=== PATIENT | female | born 1940 | race Caucasian/White ===

== ENCOUNTER → 2023-12-27 10:05 | Outpatient (REF) | payer MEDICARE, OTHER, SELFPAY | LOC: DHVS 10:05 | PROVIDERS: ATTENDING PHYSICIAN Surgery Vascular Surgery; FAMILY PHYSICIAN Family Medicine; REFERRING PHYSICIAN Internal Medicine Cardiovascular Disease | DX: I73.9 Peripheral vascular disease, unspecified (principal); I65.29 Occlusion and stenosis of unspecified carotid artery; I65.23 Occlusion and stenosis of bilateral carotid arteries | CPT/HCPCS: 93880; 93922; 93925 ==

== ENCOUNTER 2024-09-06 12:35 | Inpatient (IN) | payer MEDICARE, OTHER, SELFPAY ==
[2024-09-06] VITALS (15 sets, daily range): BP systolic 152–191; BP diastolic 61–84; PULSE 2–97; BMI 22.3
--- NOTE | 2024-09-06 09:54 | ED.GENMED ---
History of Present Illness
<Summer Roberts PA-C - Last Filed: 09/06/24 15:11>
General
Chief Complaint: Breathing Problem
Source: patient
Exam Limitations: none
Time Seen by Provider: 09/06/24 09:44
History of Present Illness
History of Present Illness:
83yoF with a history of coronary artery disease s/p CABG and PCI, atrial fibrillation, pacemaker, peripheral vascular disease, COPD on 2L NC, hypertension, hyperlipidemia presenting via EMS for evaluation of shortness of breath. Patient has been
feeling unwell for the past 4 days. She reports intermittent cough, shortness of breath, and nausea. Patient felt very unwell upon wakening today and called EMS. EMS reported crackles on her lung exam. She admits having chest heaviness but
states this has been ongoing for a long time and may be related to anxiety. She saw her slat basket maker helper machine last week and her lungs were clear at that time. She denies any fevers. Patient was last admitted in [facility] in May of this year
for CHF exacerbation.
Phy Exam
<Summer Roberts PA-C - Last Filed: 09/06/24 15:11>
Physical Exam
Physical Exam:
Chronically ill appearing, no acute distress
General Physical Exam
General Presentation: no apparent distress
General Skin: warm and dry
General Habitus: elderly
General Mental: alert
ENT Exam
ENT Exam: normocephalic
Cardiovascular Exam
Cardiovascular Exam: regular rate/rhythm and other (1+ pitting edema near ankles bilaterally)
Pulmonary Exam
Pulmonary Exam: other (Mildly tachypneic. Bibasilar rales noted.)
Neurological Exam
Neurological Exam: alert
Bernabe Coma Scale
Eye Opening: Spontaneous
Verbal Response: Oriented
Motor Response: Obeys Commands
GCS Total Score: 15
Skin Exam
Skin Exam: normal color and warm/dry
Psychiatric Exam
Psychiatric Exam: normal mood/affect
Scores
<Summer Roberts PA-C - Last Filed: 09/06/24 15:11>
Heart Failure Risk
Heart Failure Risk Score: Not Applicable
Course
<Summer Roberts PA-C - Last Filed: 09/06/24 15:11>
Orders/Labs/Results
Orders:
Orders
09/06/24
Electrocardiogram (*1) Stat
Other Reason for Exam: CP
Comment: DONE
09/06/24 09:53
Cardiac Monitoring- Treatment ONCE
Interrogate Pacemaker- Treatment ONCE
CR Chest - 2 Views Urgent
Comment:
Reason For Exam: SOB
09/06/24 09:57
COVID-19 Antigen Urgent
Source: Nasal Swab
Complete Blood Count/With Diff Urgent
Venous Blood Gas Urgent
%Oxygen/Room Air: 2L NC
Influenza A+B Rapid Molecular Urgent
EMILY Source: Nasal Swab
Specimen Description:
09/06/24 10:21
Comprehensive Metabolic Panel Urgent
NT-proBNP Urgent
Troponin I Urgent
09/06/24 11:29
Furosemide [Lasix] 40 mg IV NOW STA
09/06/24 12:14
Admit/Transfer Patient As Directed
Co-Sign Provider:
Level of Care: Inpatient admission
Assign to:: IMU- Intermediate Care
Physician / Group: [email or web address]
Diagnosis: CHf exacerbation
Reason for Hospitalization: CHF exacerbation
Expected length of stay greater than two midnights?: Yes
ELOS- Estimated Length of Stay in days: 3
I certify the patient meets the requirements for IP care: Yes
PRN Pain Medication Management As Directed
May give lesser potent ordered pain med per pt: Yes
preference::
Protocol:: Medication orders for pain may be administered in a
manner that supports deferring to patient preference
when the pt is:
- Requesting an ordered lesser potent pain medication.
Least to most potent pain medications are defined
as: acetaminophen < NSAID < tramadol < opioids
(morphine, oxycodone, hydromorphone).
- Requesting a lesser dose of the same medication IF
ORDERED.
- Requesting a less intrusive route of administration
if both routes are prescribed by the provider (PO <
IV).
09/06/24 12:15
Code Status As Directed
Resuscitation Status: Full Code
09/06/24 12:19
Waste Duster Consult Routine
Consulting Provider: Lashell Solis
Was physician already notified: Yes
09/06/24 15:30
ABG [Arterial Blood Gas] Urgent
%Oxygen/Room Air: 2l
Abnormal Lab Results
09/06/24 09/06/24
09:57 10:21
MCHC 31.4 L g/dL
(33.0-37.0)
RDW 15.3 H %
(11.5-14.5)
MPV 11.4 H fL
(7.4-10.4)
Absolute Lymphs (auto) 1.1 L 10^3/uL
(1.2-3.4)
Absolute Monos (auto) 0.7 H 10^3/uL
(0.1-0.6)
Neutrophils % 76.2 H %
(42.2-75.2)
Lymphocytes % 12.3 L %
(20.5-51.1)
VBG pCO2 81 H* mmHg
(35-48)
VBG pO2 52 H mmHg
(30-50)
VBG HCO3 43.7 H mmol/L
(22-27)
Chloride 92 L mmol/L
(98-107)
Carbon Dioxide 40 H mmol/L
(22-30)
BUN 47 H mg/dl
(7-17)
Creatinine 1.3 H mg/dL
(0.6-1.0)
Glucose 159 H mg/dl
(70-99)
09/06/24 09:57
09/06/24 10:21
Vital Signs
Initial and Last Documented VS:
Initial Vital Signs
Temp Pulse Resp BP Pulse Ox
97.6 F 70 24 179/72 97
09/06/24 09:43 09/06/24 09:43 09/06/24 09:43 09/06/24 09:43 09/06/24 09:43
Last Documented Vital Signs
Temp Pulse Resp BP Pulse Ox
97.6 F 71 29 164/71 96
09/06/24 09:43 09/06/24 11:51 09/06/24 10:00 09/06/24 11:51 09/06/24 10:00
<Reagan Alvarez, DO - Last Filed: 09/06/24 12:26>
Orders/Labs/Results
Orders:
Orders
09/06/24
Electrocardiogram (*1) Stat
Other Reason for Exam: CP
Comment: DONE
09/06/24 09:53
Cardiac Monitoring- Treatment ONCE
Interrogate Pacemaker- Treatment ONCE
CR Chest - 2 Views Urgent
Comment:
Reason For Exam: SOB
09/06/24 09:57
COVID-19 Antigen Urgent
Source: Nasal Swab
Complete Blood Count/With Diff Urgent
Venous Blood Gas Urgent
%Oxygen/Room Air: 2L NC
Influenza A+B Rapid Molecular Urgent
EMILY Source: Nasal Swab
Specimen Description:
09/06/24 10:21
Comprehensive Metabolic Panel Urgent
NT-proBNP Urgent
Troponin I Urgent
09/06/24 11:29
Furosemide [Lasix] 40 mg IV NOW STA
09/06/24 12:14
Admit/Transfer Patient As Directed
Co-Sign Provider:
Level of Care: Inpatient admission
Assign to:: IMU- Intermediate Care
Physician / Group: [email or web address]
Diagnosis: CHf exacerbation
Reason for Hospitalization: CHF exacerbation
Expected length of stay greater than two midnights?: Yes
ELOS- Estimated Length of Stay in days: 3
I certify the patient meets the requirements for IP care: Yes
PRN Pain Medication Management As Directed
May give lesser potent ordered pain med per pt: Yes
preference::
Protocol:: Medication orders for pain may be administered in a
manner that supports deferring to patient preference
when the pt is:
- Requesting an ordered lesser potent pain medication.
Least to most potent pain medications are defined
as: acetaminophen < NSAID < tramadol < opioids
(morphine, oxycodone, hydromorphone).
- Requesting a lesser dose of the same medication IF
ORDERED.
- Requesting a less intrusive route of administration
if both routes are prescribed by the provider (PO <
IV).
09/06/24 12:15
Code Status As Directed
Resuscitation Status: Full Code
09/06/24 12:19
Waste Duster Consult Routine
Consulting Provider: Lashell Solis
Was physician already notified: Yes
09/06/24 15:30
ABG [Arterial Blood Gas] Urgent
%Oxygen/Room Air: 2l
Abnormal Lab Results
09/06/24 09/06/24
09:57 10:21
MCHC 31.4 L g/dL
(33.0-37.0)
RDW 15.3 H %
(11.5-14.5)
MPV 11.4 H fL
(7.4-10.4)
Absolute Lymphs (auto) 1.1 L 10^3/uL
(1.2-3.4)
Absolute Monos (auto) 0.7 H 10^3/uL
(0.1-0.6)
Neutrophils % 76.2 H %
(42.2-75.2)
Lymphocytes % 12.3 L %
(20.5-51.1)
VBG pCO2 81 H* mmHg
(35-48)
VBG pO2 52 H mmHg
(30-50)
VBG HCO3 43.7 H mmol/L
(22-27)
Chloride 92 L mmol/L
(98-107)
Carbon Dioxide 40 H mmol/L
(22-30)
BUN 47 H mg/dl
(7-17)
Creatinine 1.3 H mg/dL
(0.6-1.0)
Glucose 159 H mg/dl
(70-99)
09/06/24 09:57
09/06/24 10:21
Vital Signs
Initial and Last Documented VS:
Initial Vital Signs
Temp Pulse Resp BP Pulse Ox
97.6 F 70 24 179/72 97
09/06/24 09:43 09/06/24 09:43 09/06/24 09:43 09/06/24 09:43 09/06/24 09:43
Last Documented Vital Signs
Temp Pulse Resp BP Pulse Ox
97.6 F 71 29 164/71 96
09/06/24 09:43 09/06/24 11:51 09/06/24 10:00 09/06/24 11:51 09/06/24 10:00
Austinlt;Summer Roberts PA-C - Last Filed: 09/06/24 15:11>
MDM/Problems Addressed
Differential Diagnosis Includes:
83yoF here with SOB and generalized weakness. Hx of CHF and chronic respiratory failure on 2L NC. She is mildly tachypneic on initial exam. Bibasilar rales noted. Differential diagnosis includes but is not limited to: CHF exacerbation, COPD
exacerbation, pneumonia
Initial ED plan: Cardiac labs, VBG, COVID/flu swab, EKG, and chest x-ray. Will interrogate pacemaker.
<Summer Roberts PA-C - Last Filed: 09/06/24 15:11>
*EKG
Interpreted by ED Provider?: Yes
EKG Intrepretation Date: 09/06/24
Heart Rate: 70
Rate: normal
Rhythm: ventricular paced
[place]: left axis deviation
Ischemia: no ischemia
*Critical Care Note
Total Time (30-74mins, 75-104mins- exclusive of procedures): Not Applicable
<Summer Roberts PA-C - Last Filed: 09/06/24 15:11>
Update Note
Update Note:
Labs reveal a pCO2 of 81. Bicarb elevated and pH is normal suggesting that this is chronic. BNP [id number]. CXR shows pulmonary edema with a moderate R pleural effusion. 40mg IV Lasix ordered and patient admitted for further management.
ED Attending Note
<Summer Roberts PA-C - Last Filed: 09/06/24 15:11>
-
Portions of this chart may have been created with voice recognition software.� Occasional wrong word or��sound alike� substitutions may have occurred due to the inherent limitations of voice recognition software.
<Reagan Alvarez DO - Last Filed: 09/06/24 12:26>
ED Attending Note
Patient seen and examined by attending physician: Yes
I performed the substantive portion of visit, reviewed & personally made and approve the management plan that is documented in note by myself or JOHN.: Yes
ED Attending Note:
I agree with Julienne's note
Patient presents with shortness of breath. Patient has known history of both COPD and CHF. She denies chest pain. Patient states has been feeling more short of breath over the past few days.
She does use 2L nasal cannula oxygen on a regular basis. No fever.
General: Awake, Alert, Oriented X3. Appears to have mild to moderate increase work of breathing. Not in respiratory distress however
Vitals: tachypneic
Head: Atraumatic
Eyes: Pupils equal, EOMI
Throat: Airway intact, no exudates
Neck: Trachea midline
Lungs: Crackles bilateraly, decreased breath sounds right base
Heart: Regular rate, no murmurs
Neuro: Nonfocal
Skin: Warm, dry, no rash
Extremities: pulses equal b/l, 2+ edema
Labs show normal hemoglobin and white blood cell count, patient's BUN and creatinine are elevated but similar to measurements in 2022. Patient does have an elevated bicarb indicating some chronic CO2 retention. Patient also noted to have an
elevated CO2 on a venous blood gas. However the pH is normal indicating this to be compensated and reflect chronic CO2 retention. Chest x-ray shows a moderate size right pleural effusion with some mild cephalization. Overall presentation
consistent with heart failure. Patient will receive IV diuretics. We can interrogate her device. I would not initiate BiPAP for her elevated CO2 and of itself as this is compensated. Should her respiratory effort increase it might help her work
of breathing but at this time I think supplemental oxygen, IV diuresis and potentially a thoracentesis is the way to go.
Discharge Plan
Departure
Patient Disposition: Admit
Date of Disposition: 09/06/24
Time of Disposition: 12:00
Presentation/result/management discussed w/ accepting MD/DO: Hospitalist
Discharge Problem:
Acute exacerbation of CHF (congestive heart failure), Pleural effusion on right
Interventions
Interventions:
*Risk Screen - Suicide Last Done: 09/06/24 09:43
*General Assessment Last Done: 09/06/24 09:43
*Neglect/Abuse Screening Last Done: 09/06/24 09:43
ED- Cardiac Assessment Last Done: 09/06/24 10:04
ED- Pulmonary Assessment Last Done: 09/06/24 10:04
[2024-09-06 10:10] LABS: Venous Blood Gas B.E. 13.6 mmol/L (-4 to +4); Venous Blood Gas HCO3 43.7 mmol/L (22-27); Venous Blood Gas O2 Sat % 84.6 %; Venous Blood Gas pH 7.34 (7.32-7.43); Venous Blood Gas pO2 52 mmHg (30-50)
[2024-09-06 10:11] LABS: Venous Blood Gas O2 Therapy 2L NC
[2024-09-06 10:13] LABS: Venous Blood Gas pCO2 81 mmHg (35-48)
[2024-09-06 10:26] LABS: % Basophils 0.9 % (0-2); % Eosinophils 2.3 % (0-6); % Immature Granulocytes 0.2 % (0-0.5); % Lymphocytes 12.3 % (20.5-51.1); % Monocytes 8.1 % (1.7-9.3); % Neutrophils 76.2 % (42.2-75.2); Absolute Basophils 0.1 10^3/uL (0-0.2); Absolute Eosinophils 0.2 10^3/uL (0-0.7); Absolute Lymphocytes 1.1 10^3/uL (1.2-3.4); Absolute Monocytes 0.7 10^3/uL (0.1-0.6); Absolute Neutrophils 6.5 10^3/uL (1.4-6.5); Hematocrit 46.5 % (37.0-47.0); Hemoglobin 14.6 g/dL (12.0-16.0); Mean Corp Hgb Conc. 31.4 g/dL (33.0-37.0); Mean Corpuscular Hgb 30.3 pg (27.0-31.0); Mean Corpuscular Volume 96.5 fL (81.0-99.0); Mean Platelet Volume 11.4 fL (7.4-10.4); Nucleated Red Blood Cells % 0 %; Platelet Count 136 10^3/uL (130-400); Red Blood Cell Count 4.82 10^6/uL (4.20-5.40); Red Cell Dist. Width 15.3 % (11.5-14.5); White Blood Cell Count 8.5 10^3/uL (4.8-10.8)
[2024-09-06 10:36] LABS: COVID-19 Antigen Negative (Negative)
[2024-09-06 10:50] LABS: ALT (SGPT) 16 U/L (0-35); AST (SGOT) 33 U/L (14-36); Alkaline Phosphatase 66 U/L (38-126); Blood Urea Nitrogen 47 mg/dl (7-17); Calcium 9.4 mg/dl (8.4-10.2); Chloride 92 mmol/L (98-107); Estimated Creatinine Clearance 32 ml/min; Glucose 159 mg/dl (70-99); Potassium 4.4 mmol/L (3.5-5.1); Sodium 142 mmol/L (135-145); Total Bilirubin 1.1 mg/dl (0.2-1.3)
[2024-09-06 10:56] LABS: NT-proBNP 16800 pg/ml; Troponin I 0.025 ng/ml
[2024-09-06 11:15] LABS: Carbon Dioxide 40 mmol/L (22-30)
[2024-09-06] MEDS: LASIX 40 MG IV ×2 (11:51→17:42)
--- NOTE | 2024-09-06 12:17 | HPS.HSE ---
Addendum entered and electronically signed by Abrahan Montelongo MD 09/06/24 13:19:
IR consulted for Rt sided Dxtic and Rxtic thoracentesis.
Original Note:
Family Physician
-
Family Physician: Guera Carter
Chief Complaint
-
SoB, BiB EMS
History of Present Illness
83F Bi B EMS HX coronary artery disease s/p CABG and PCI, atrial fibrillation, pacemaker, peripheral vascular disease, COPD on 2L NC, hypertension, hyperlipidemia presenting via EMS for evaluation of shortness of breath.
- feeling unwell for the past 4 days.
- intermittent cough, shortness of breath, and nausea.
- very unwell upon wakening today and called EMS.
- EMS reported crackles on her lung exam.
- admits having chest heaviness , has been ongoing for a long time and may be related to anxiety.
- She saw her small brake form operator last week and her lungs were clear at that time.
ROS
She denies any fevers. Patient was last admitted in [facility] in May of this year for CHF exacerbation.
Medical History
Past Medical History
Past Medical History: Reports Arrhythmia (Prx AF on chr eliquis, PPM implant ), CAD (stent and CABG ), CHF, COPD (home O2 2 L dependent ), Hypothyroidism and Renal Failure (KD stage unknown )
Past Surgical History: Reports Cardiac (CABG , PPM implant )
Social History
Tobacco: Non-smoker
Alcohol: None
Family History
Family History: Not pertinent
Allergies / Home Medications
Allergies reflects when Allergies were last updated in [employer].
Home Medications with original date entered in [employer]
Allergy/Medication List:
Allergies
Allergy/AdvReac Type Severity Reaction Status Date / Time
aspirin AdvReac History of Verified 09/06/24 09:43
GI bleed
Home Medications
amlodipine 5 mg tablet 5 mg PO DAILY #90 tabs 01/05/22
apixaban 2.5 mg tablet (Eliquis) 2.5 mg PO BID 01/05/22
carvedilol 25 mg tablet (Coreg) 25 mg PO BID 01/05/22
levothyroxine 50 mcg tablet 50 mcg PO DAILY 01/05/22
linagliptin 5 mg tablet (Tradjenta) 5 mg PO DAILY 01/05/22
spironolactone 25 mg tablet 12.5 mg PO DAILY 01/05/22
torsemide 20 mg tablet 5 mg PO DAILY 01/05/22
Macu Guard 1 tab PO DAILY 07/23/22
alpha lipoic acid 50 mg capsule 50 mg PO DAILY 07/23/22
magnesium 200 mg tablet 200 mg PO DAILY 07/23/22
multivitamin 1 tab PO DAILY 07/23/22
piperacillin-tazobactam 3.375 gram intravenous solution 3.375 g IV Q8H 07/26/22
Review of Systems
-
Constitutional: Reports No Symptoms
EENT: Reports No Symptoms
Respiratory: Reports See HPI and Trouble Breathing
Cardiac: Reports No Symptoms
Abdomen/GI: Reports No Symptoms
: Reports No Symptoms
Musculoskeletal: Reports No Symptoms
Skin: Reports No Symptoms
Neurological: Reports No Symptoms
Endocrine: Reports No Symptoms
Hematologic/Lymphatic: Reports No Symptoms
Psych: Reports No Symptoms
Physical Exam
Vital Signs
Vital Signs
Temp Pulse Resp BP Pulse Ox
97.6 F 71 29 164/71 96
09/06/24 09:43 09/06/24 11:51 09/06/24 10:00 09/06/24 11:51 09/06/24 10:00
Physical Exam
General: Well Developed, Well Nourished and No Apparent Distress
HEENT: NormoCephalic, Moist mucous membranes and Atraumatic
Respiratory: Clear
Cardiac: S1/S2 and Regular Rhythm; No Murmur or Rub
GI: Soft, Non Tender, Non Distended and Normal Bowel Sounds; No Organomegaly
Rectal: Deferred by Provider
Musculoskeletal: No Clubbing, No Cyanosis and No Edema
Skin: No Rash
Neuro: AO x 3, Nonfocal/grossly intact and Tremors (subtle POS flapping tremors )
Psych: Calm and Intact Judgment/Insight; No Confused
Laboratory Results
-
09/06/24 09:57
09/06/24 10:21
Laboratory Results
Total Bilirubin 1.1 mg/dl (0.2-1.3) 09/06/24 10:21
AST 33 U/L (14-36) 09/06/24 10:21
ALT 16 U/L (0-35) 09/06/24 10:21
Alkaline Phosphatase 66 U/L (38-126) 09/06/24 10:21
Troponin I 0.025 ng/ml 09/06/24 10:21
Data Reviewed
-
Diagnostic Radiology: Other (pending )
Medical Tests (Nuc Med, Echo, EKG etc): Report Reviewed by me
Lab Data: Labs Reviewed by me
Old Records: Reviewed
Impression/Plan
-
Selected Entries
09/06/24
09:43
Temp 97.6 F
Pulse 70
Resp Rate 24
Blood pressure 179/72
SaO2 97
Nasal Cannula flow liters per minute 2
Labs
07/26/22 09/06/24 09/06/24
08:51 09:57 10:21
WBC 8.5
Hgb 14.6
Plt Count 136
VBG pH 7.34
VBG pCO2 81 H*
VBG pO2 52 H
VBG HCO3 43.7 H
Sodium 142
Potassium 4.4
Chloride 92 L
Carbon Dioxide 21 L 40 H
BUN 47 H
Creatinine 1.7 H 1.3 H
eGFR 40.30
Troponin I 0.025
[id number] Pept [id number]
SARS-CoV-2 Antigen Negative
CXR Pending report
EKG
Ventricular-paced rhythm
ABNORMAL ECG
WHEN COMPARED WITH ECG OF 26-JUL-2022 08:45,
PREVIOUS ECG HAS UNDETERMINED RHYTHM, NEEDS REVIEW
Last hospitalist admission:
ASSESSMENT & PLAN
Pending Rx reconciliation
Acute on chr hypoxic hypercapnic RF
- multifactorial origin: acute HF, Rt pleural effusion , COPD flare
- see below
Acute HF suspect CHF type unknown
Rt pleural effusion : moderate size
- IV Lasix in place of Torsemide
- Holding Spironolactone while diuresing
- GDMT: Carvedilol
- ECHO
- daily Wt, IOs, BMP
- f/u CXR following diuresis
- DCA card consult
Primary compensated acute Resp acidosis - with subtle flapping tremor
Chronic O2 dependent t COPD
Secondary metabolic alkalosis
- Awake and alert , cooperative
- BiPAP 10/5 and then repeat ABG 3-4 hrs
- Mortgage Collector consult
HX CAD with stent
S/P CABG
- NEG TPNI
JESSICA
CKD HX - stage not clear
- c/w IV diuresis
- hold spironolactone while IV Diuresis
V paced rhythm
Prx AF
PPM implant
- REFERRAL SPECIALIST Eliquis
- REFERRAL SPECIALIST Carvedilol
Benign HTN
- REFERRAL SPECIALIST Amlodipine
- to hold REFERRAL SPECIALIST spironolactone
- REFERRAL SPECIALIST Carvedilol
Hypothyroid
- on REFERRAL SPECIALIST LT4
DVT Px: REFERRAL SPECIALIST Eliquis
Code: Full code
IMU
--- NOTE | 2024-09-06 14:20 | CM ---
Met with patient and spouse. Patient and spouse moved to [facility] in May. It is a one level apt, no steps. Patient has home oxygen, w/c , rolling walker, rollator, scooter, shower rails and seat, toilet grab bars.
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
Patient had [facility] and [facility] in past for home care. They prefer [facility] and also their is a nurse at [facility]. Patient weighs self daily, checks her blood sugars and her blood pressure. She has begun discussion with someone at [facility] about
Palliative care.
PCP: Guera Mora
Pharmacy: [facility]
She has not been to a snf in past.
PLAN: home with home care if possible.
[2024-09-06 15:26] LABS: B.E. 15.1 mmol/L; O2 Saturation % 96.8 % (94-98); PCO2 61 mmHg (32-35); PO2 77 mmHg (83-108); pH 7.45 (7.35-7.45)
[2024-09-06 15:30] LABS: HCO3 42.4 mmol/L (21-28)
--- NOTE | 2024-09-06 16:49 | CON.PUL ---
Consultation
Consultation Request
Date/Time Consultation Requested: 09/06/2024
Date/Time Consultation Performed: 09/06/2024
Requesting Provider: Abrahan Montelongo
Performing Provider: Lashell Solis
Reason for Consultation: Pleural effusion
Medical History
-
Chief Complaint: Shortness of breath
History of Present Illness:
Patient is a very pleasant 83-year-old female who presents to the emergency room for worsening shortness of breath. Patient reports that over the last couple of weeks she has been progressively getting more short of breath. She denies any cough
however does report dyspnea, orthopnea as well as paroxysmal nocturnal dyspnea. She has had 2 hospitalization in the last few months for heart failure exacerbation at outside facilities most recently in May at [place]. Patient reports that
she has been noticing increasing swelling of bilateral lower extremities over the last few days. In view of worsening symptoms she presented to emergency room and was noted to be floridly volume overloaded. Patient also noted to have bilateral
pleural effusions right slightly larger than the left. Pulmonary consultation was requested for further input.
Patient reports prior episodes of thoracentesis on the right side related to volume overload, details are not clear at this point this was at an outside facility. No prior history of lung infection or lung cancer. Patient has remote smoking
history and is using oxygen at home. She does not report any known diagnosis of COPD or emphysema. Patient has history of obstructive sleep apnea and has been prescribed CPAP but has not been able to use it due to intolerance.
Past Medical History
Past Medical History: Reports Arrhythmia (Prx AF on chr eliquis, PPM implant ), CAD (stent and CABG ), CHF, COPD (home O2 2 L dependent ), Hypothyroidism and Renal Failure (KD stage unknown )
Past Surgical History: Reports Cardiac (CABG , PPM implant )
Social History
Tobacco: Non-smoker
Alcohol: None
Family History
Family History: Not pertinent
Allergies / Home Medications
Allergies reflects when Allergies were last updated in [employer].
Allergies / Home Medications
Allergies
Allergy/AdvReac Type Severity Reaction Status Date / Time
aspirin AdvReac History of Verified 09/06/24 09:43
GI bleed
Home Medications
�Medication �Instructions �Recorded �Confirmed �Last Taken �Type
apixaban 2.5 mg tablet (Eliquis) 2.5 mg PO BID 01/05/22 09/06/24 07/24/22 21:00 History
carvedilol 25 mg tablet (Coreg) 25 mg PO BID 01/05/22 09/06/24 07/26/22 06:00 History
levothyroxine 50 mcg tablet 50 mcg PO DAILY 01/05/22 09/06/24 07/26/22 06:00 History
linagliptin 5 mg tablet (Tradjenta) 5 mg PO DAILY 01/05/22 09/06/24 07/25/22 08:00 History
torsemide 20 mg tablet 20 mg PO DAILY 01/05/22 09/06/24 07/26/22 06:00 History
Macu Guard 1 tab PO DAILY 07/23/22 09/06/24 07/25/22 08:00 History
alpha lipoic acid 50 mg capsule 50 mg PO DAILY 07/23/22 09/06/24 07/25/22 08:00 History
magnesium 200 mg tablet 200 mg PO DAILY 07/23/22 09/06/24 07/25/22 08:00 History
multivitamin 1 tab PO DAILY 07/23/22 09/06/24 07/25/22 08:00 History
alprazolam 0.25 mg tablet 0.25 mg PO HS PRN sleep 09/06/24 09/06/24 Unknown History
valsartan 40 mg tablet 40 mg PO DAILY 09/06/24 09/06/24 Unknown History
Review of Systems
-
Hematologic/Lymphatic: Other (All 14 systems reviewed and negative except as stated above in the history of present illness.)
Vitals / Labs / Diagnostic Testing
Vital Signs
Temp Pulse Resp BP Pulse Ox
97.6 F 72 23 191/83 95
09/06/24 09:43 09/06/24 16:00 09/06/24 16:00 09/06/24 15:00 09/06/24 16:00
Laboratory Results
09/06/24
15:21
pH 7.45
pCO2 61 H
pO2 77 L
HCO3 42.4 H*
O2 Delivery Level
Microbiology
09/06/24 09:57 Nasal Swab Influenza Types A & B (JIM) - Final
Negative for Influenza A & B, NAAT
Negative results must be combined with clinical observations
and patient history.
Nucleic Acid Amplification test (NAAT)performed on the
[employer] platform.
Diagnostic Testing:
Physical Exam
-
HEENT: Normocephalic
Cardiovascular: S1/S2 and Peripheral Edema (3+ bilateral pedal edema)
Respiratory: Rales and Other (Bilateral inspiratory crackles. Decreased air entry in the right lower lobe posteriorly.)
GI: Soft
Neurology: Awake and Alert
Skin: Warm
General: Comfortable
Assessment
-
#1. Acute on chronic hypoxic and hypercapnic respiratory failure. Patient reportedly on 2 L oxygen at baseline and review of her blood gas appears to be suggestive of chronic compensated hypercapnia. She has known history of obstructive sleep
apnea but no prior diagnosis of COPD or emphysema. Not on any inhaler therapy at home. Remote history of smoking.
- Current presentation appears to be due to fluid overload with congestive heart failure exacerbation and bilateral pleural effusions
- Patient initially required BiPAP in the emergency room, currently transition to nasal cannula and appears comfortable
- Hypoxia responded well to supplemental oxygen. Acute on chronic hypercapnia responded well to BiPAP with follow-up blood gas 7.45, 61, 77.
- Significantly elevated BNP, volume overload on exam. Lasix 40 mg IV given, switch to 40 mg IV twice a day
- No wheezing on exam, no indication for steroids or antibiotics. DuoNeb as needed
- Monitor input and output closely, BiPAP as needed in addition. Patient has trouble tolerating the mask. Encouraged her to try using it nightly if possible
#2. Pleural effusions, right greater than left. On the imaging patient has a right-sided small to moderate and a left-sided small effusion. Prior history of thoracentesis for heart failure as per patient, details not available for review.
- Considering overall volume overload and bilateral pleural effusions, more likely related to heart failure exacerbation rather than a primary pulmonary pathology
- Continue diuresis, follow-up chest x-ray in the morning. IR service has already been consulted. If patient were to have symptomatic moderate effusion in the follow-up chest x-ray, she might benefit from thoracentesis and analysis of fluid.
- Hold off antibiotics for now
#3. Acute on chronic congestive heart failure exacerbation. Ejection fraction unknown.
- Recommend getting records from patient's hyperbaric nurse
- Lasix 40 mg IV twice a day
- Patient quite hypertensive, resume home medications
- Patient being admitted to IMU, defer further management to cardiology service
#4. History of obstructive sleep apnea. Patient has been prescribed CPAP but has not been able to tolerate despite trying different masks.
- Continue BiPAP in hospital on an as-needed basis, she seemed to have responded well to IV diuresis and currently off BiPAP.
- Monitor closely in IMU
- Admission VBG 7.34, 81. Post BiPAP blood gas improved to 7.45, 61.
#5. Remote history of smoking. No known diagnosis of emphysema or COPD. Has not been on any inhalers.
- As needed DuoNeb for now.
Other medical diagnoses:
-HTN
-CAD, s/p CABG
-S/p Pacemaker placement
-Paroxysmal Atrial Fibrillation. On Eliquis
-CKD stage III. Cr 1.7 (1.3 in 2022)
-Hypothyroidism
Discussed with patient's at bedside.
Total time spent on this consultation/encounter _81___ minutes which includes review of history, physical exam, medications, laboratory data, personal review of imaging, extensive review of outpatient records, discussion with care team and
respiratory therapy.
Data:
CXR 08/2024: Small to moderate right pleural effusion and small left pleural effusion with adjacent basilar atelectasis.
Cardiomegaly with increased interstitial markings, likely representing interstitial pulmonary edema pattern.
Cardiac Cath 12/2021: 1: Systemic hypertension
2: Severe [place] triple-vessel CAD as described with patent AMBROCIO-LAD, RYI-NCSN-TRS, and SVG-ramus intermedius branch. There is 60-70% proximal stenosis in the left internal mammary artery graft which I believe is best left alone. We could treat
the left main and mid LAD lesions with stenting at some level of increased risk for snowplowing the ostial circumflex and/or first septal filter changing technician. At this time she is not experiencing anginal symptoms and tells me that she does not have
significant exertional dyspnea. She is clearly deconditioned. Leg pain has precluded her from exercising although following her RLE stenting this may change. I favor more intensive antihypertensive therapy and following her clinically unless she
has progressive symptoms and if this occurs I would favor stenting of the left main and mid LAD lesions. She has appropriately significant trepidation about taking antiplatelet therapy with recent GI bleeding. She has a need for ongoing Eliquis.
We will add amlodipine 5mg to her regimen. She tells me this previously had her BP normalized and that she was not taken off of it for lack of efficacy or side effects.
3. Angiography of the right distal common carotid artery and right ICA demonstrate no significant lesion that would benefit from revascularization
4. I was able to obtain her preop CABG cath from [facility] (2011)- the distal LMCA was mildly diseased then and the mid LAD had 70% stenosis.
[2024-09-06] MEDS: COREG 25 MG PO (20:46)
[2024-09-06] MEDS: XANAX 0.25 MG PO (20:46)
[2024-09-06] MEDS: TYLENOL 650 MG PO (20:46)
[2024-09-06] MEDS: ELIQUIS 2.5 MG PO (20:46)
[2024-09-06 21:35] LABS: Troponin I 0.032 ng/ml
--- NOTE | 2024-09-06 23:03 | PTCARENOTE ---
Received verbal report from CHEIKH Grady. Pt arrived to floor via stretcher. Pt is aaox3 and [place] with bilateral hearing aids. Pt 95% on 2L NC. AV paced on monitor. Purewick replaced when pt arrived to floor and hygiene completed. PW in place
draining yellow urine. Admission complete. Assessment and vital signs as documented. Pt resting in bed with call chris in reach.
[2024-09-07] VITALS (19 sets, daily range): BP systolic 70–185; BP diastolic 49–128; PULSE 2–71; BMI 22.2
[2024-09-07 03:23] LABS: Venous Blood Gas B.E. 15.3 mmol/L (-4 to +4); Venous Blood Gas HCO3 46.4 mmol/L (22-27); Venous Blood Gas pH 7.32 (7.32-7.43); Venous Blood Gas pO2 41 mmHg (30-50)
[2024-09-07 03:27] LABS: Venous Blood Gas pCO2 90 mmHg (35-48)
[2024-09-07 03:38] LABS: % Eosinophils 1.2 % (0-6); % Immature Granulocytes 0.3 % (0-0.5); % Lymphocytes 12.4 % (20.5-51.1); % Monocytes 8.8 % (1.7-9.3); % Neutrophils 76.3 % (42.2-75.2); Absolute Basophils 0.1 10^3/uL (0-0.2); Absolute Eosinophils 0.1 10^3/uL (0-0.7); Absolute Lymphocytes 0.9 10^3/uL (1.2-3.4); Absolute Monocytes 0.6 10^3/uL (0.1-0.6); Absolute Neutrophils 5.3 10^3/uL (1.4-6.5); Hematocrit 47.6 % (37.0-47.0); Hemoglobin 14.5 g/dL (12.0-16.0); Mean Corp Hgb Conc. 30.5 g/dL (33.0-37.0); Mean Corpuscular Hgb 29.8 pg (27.0-31.0); Mean Corpuscular Volume 97.7 fL (81.0-99.0); Mean Platelet Volume 11.2 fL (7.4-10.4); Nucleated Red Blood Cells % 0 %; Platelet Count 134 10^3/uL (130-400); Red Blood Cell Count 4.87 10^6/uL (4.20-5.40); Red Cell Dist. Width 15.3 % (11.5-14.5); White Blood Cell Count 6.9 10^3/uL (4.8-10.8)
[2024-09-07 03:49] LABS: Blood Urea Nitrogen 44 mg/dl (7-17); Chloride 94 mmol/L (98-107); Estimated Creatinine Clearance 35 ml/min; Glucose 120 mg/dl (70-99); HDL Cholesterol 39 mg/dl; LDL Cholesterol, Calculated 67 mg/dl; Magnesium 2.1 mg/dl (1.6-2.3); Potassium 3.6 mmol/L (3.5-5.1); Sodium 144 mmol/L (135-145); Total Cholesterol 136 mg/dl (50-199); Triglyceride 150 mg/dl (10-149); Very Low Density Lipoprotein 30 mg/dl (0-30); eGFR 44.36
[2024-09-07 03:58] LABS: Troponin I 0.032 ng/ml
[2024-09-07 04:00] LABS: Carbon Dioxide 39 mmol/L (22-30)
[2024-09-07] MEDS: NORVASC 5 MG PO (04:31)
[2024-09-07] MEDS: SYNTHROID 50 MCG PO (04:31)
--- NOTE | 2024-09-07 04:56 | PTCARENOTE ---
Pt anxious and requesting Xanax which she takes at home. Pt c/o pain and discomfort in her legs, per pt this is chronic and is related to restless leg syndrome. Pt requested Tylenol. Notified BALA Gunn and Rx received for Xanax and Tylenol (see
JUN).
Pt's blood pressure 178/62, hr 70. Notified BLAA Gunn and received an Rx for Norvasc (see MAR).
Pt's VBG pCO2 90. BALA Gunn notified. New Rx received for Bipap. Lisa, RT notified and pt now resting in bed with bipap on.
[2024-09-07] MEDS: LASIX 40 MG IV ×2 (08:06→20:26)
[2024-09-07] MEDS: DIOVAN 40 MG PO ×2 (08:06→10:58)
[2024-09-07] MEDS: COREG 25 MG PO ×2 (08:06→20:25)
[2024-09-07] MEDS: ELIQUIS 2.5 MG PO (08:06)
--- NOTE | 2024-09-07 09:12 | CON.CAR ---
Addendum entered and electronically signed by Luis Manuel Patterson MD 09/07/24 11:37:
I saw and examined the patient.
Dr Frank's note was reviewed and I agree with the note.
Comment: 83-year-old female with history of CHF (unknown EF), CAD (CABG, PCI), paroxysmal A-fib, PPM, PAD, HAKAN chronic hypoxic respiratory failure on 2 L NC, hypothyroidism, hypertension, hyperlipidemia, CKD, who presents with shortness of breath x
4 days. IT appears she has HFmrEF per history. She was on Entresto mod dose but stopped and stopped Jardiance. We will cont IV diuresis.
- IV diuresis
- Restart home mod-dose Entresto
- SGLT2i tomorrow after labs
Original Note:
Consultation
Consultation Request
Date/Time Consultation Requested: 09/06/2024/17:51
Date/Time Consultation Performed: 09/07/2024/08:00
Requesting Provider: Yoan Calderon MD
Performing Provider: Luis Manuel Patterson MD
Reason for Consultation: Acute heart failure exacerbation
Medical History
-
Chief Complaint: SOB
History of Present Illness:
83-year-old female with history of CHF (unknown EF), CAD (CABG, PCI), paroxysmal A-fib, PPM, PAD, HAKAN chronic hypoxic respiratory failure on 2 L NC, hypothyroidism, hypertension, hyperlipidemia, CKD, who presents with shortness of breath x 4 days.
She woke up unwell yesterday and called EMS. She reported chronic chest heaviness at the time which she attributed to anxiety, and occasional productive cough (did not observe appearance of sputum). There was no fever or chest pain. She saw her
embedded software developer a week ago and her lungs were clear on exam. However, EMS reported crackles on lung exam when they evaluated her. A few days ago, she increased torsemide dose from 5 mg daily to 40 mg daily on advice of her embedded software developer due to reported
symptoms.
Of note she was on amlodipine for hypertension until recently changed to Entresto while hospitalized for CHF at [facility] in May. She reported lower extremity swelling and feeling unwell while on Entresto, and called her embedded software developer
office 3 days ago to report the symptoms. She was then switched from Entresto to valsartan. Home blood pressure readings with systolic blood pressure generally in 140s. Her usual dose of torsemide is 5 mg daily but she increased to 40 mg a few
days ago on advice of her embedded software developer due to above symptoms
She estimates about 3 hospitalization for CHF within the past 1 year.
Past Medical History
Past Medical History: Arrhythmias (Paroxysmal A-fib), CAD, CHF, COPD, HTN, Hypercholesterolemia and Hypothyroidism
Social History
Tobacco: Former Smoker (Quit 40 years ago)
Alcohol: Occasional
Family History
Family History: Reviewed & Not Pertinent
Allergies / Home Medications
Allergy/AdvReac Type Severity Reaction Status Date / Time
aspirin AdvReac History of Verified 09/06/24 09:43
GI bleed
�Medication �Instructions �Recorded �Confirmed �Type
apixaban 2.5 mg tablet (Eliquis) 2.5 mg PO BID Blood Clot 01/05/22 09/06/24 History
Prevention/Tx
carvedilol 25 mg tablet (Coreg) 25 mg PO BID Heart 01/05/22 09/06/24 History
Disease/Condition
levothyroxine 50 mcg tablet 50 mcg PO DAILY Thyroid 01/05/22 09/06/24 History
linagliptin 5 mg tablet (Tradjenta) 5 mg PO DAILY Diabetes 01/05/22 09/06/24 History
torsemide 20 mg tablet 20 mg PO DAILY Fluid 01/05/22 09/06/24 History
Retention/Swelling
Macu Guard 1 tab PO DAILY Supplement 07/23/22 09/06/24 History
alpha lipoic acid 50 mg capsule 50 mg PO DAILY Supplement 07/23/22 09/06/24 History
magnesium 200 mg tablet 200 mg PO DAILY Supplement 07/23/22 09/06/24 History
multivitamin 1 tab PO DAILY Supplement 07/23/22 09/06/24 History
alprazolam 0.25 mg tablet 0.25 mg PO HS PRN sleep 09/06/24 09/06/24 History
valsartan 40 mg tablet 40 mg PO DAILY Blood Pressure 09/06/24 09/06/24 History
Review of Systems
-
History Source: Patient
Constitutional: Other (no fever)
Respiratory: Cough (occasional) and Other (no dyspnea on Bipap)
Cardiac: Other (no chest pain or palpitations)
Abdomen/GI: Other (no abdominal pain, nausea or vomiting)
Physical Exam
Vital Signs
Temp Pulse Resp BP Pulse Ox
98.6 F 70 22 185/67 92
09/07/24 06:37 09/07/24 09:00 09/07/24 09:00 09/07/24 08:06 09/07/24 09:00
Lab Results
09/07/24 03:14
09/07/24 03:14
Troponin I 0.032 ng/ml 09/07/24 03:14
Ryu-L-Gszaipugudt Pept 74716 pg/ml 09/06/24 10:21
Physical Exam
General: Well Developed, Well Nourished, No Apparent Distress and Comfortable
HEENT: Normocephalic and Atraumatic
Respiratory: Clear, Crackles (bilateral lower lobes) and Non Labored Respirations (on bipap); Negative Wheezes or Rhonchi
Cardiac: S1/S2, Regular Rhythm and Peripheral Edema (2+ to ankles bilaterally); Negative Murmur or Rub
GI: Soft, Non Tender, Non Distended and Normal Bowel Sounds
Genito-urinary: Other (clear urine)
Skin: Warm and Dry
Neuro: Awake, Alert and Oriented
Psych: Calm
Impression / Plan
-
83-year-old female with history of CHF (unknown EF), CAD (CABG, PCI), paroxysmal A-fib, PPM, HAKAN, PAD, chronic hypoxic respiratory failure on 2 L NC, hypothyroidism, hypertension, hyperlipidemia, CKD, who presents with acute heart failure
exacerbation.
Acute heart failure exacerbation:
Unknown EF
Possibly caused by uncontrolled hypertension.
- Continue Lasix 40 mg IV twice daily
- Get echo
- Strict IandO, fluid restrict, follow BMP, daily weights
Essential hypertension:
- Recent change from
- Patient recently switched from Entresto to Valsartan. Likely switch back to Entresto tonight.
- PRN Hydralazine
Afib:
? if permanent vs a.
- ongoing afib, ventricular paced. Normal Ventricular rate
- Increase Eliquis dose to 5mg BID given Age, weight and Cr
CKD
Unknown stage or baseline creatinine
- Follow BMP
- Continue IV diuresis
--- NOTE | 2024-09-07 09:36 | PTCARENOTE ---
Patient taken off of BiPAP and placed on 2L NC by RT. SpO2 94% on 2L. Patient resting comfortably in bed. Care ongoing.
--- NOTE | 2024-09-07 09:36 | W.PN.PUL.V3 ---
Today's Communication / Plan
-
Diuresis as tolerated.
Wean oxygen.
Liberate from BiPAP.
Assessment
-
Patient is a very pleasant 83-year-old female who presents to the emergency room for worsening shortness of breath. Patient reports that over the last couple of weeks she has been progressively getting more short of breath. She denies any cough
however does report dyspnea, orthopnea as well as paroxysmal nocturnal dyspnea. She has had 2 hospitalization in the last few months for heart failure exacerbation at outside facilities most recently in May at [place]. Patient reports that
she has been noticing increasing swelling of bilateral lower extremities over the last few days. In view of worsening symptoms she presented to emergency room and was noted to be floridly volume overloaded. Patient also noted to have bilateral
pleural effusions right slightly larger than the left. Pulmonary consultation was requested for further input.
Acute on top of chronic hypoxemic and hypercapnic respiratory failure.
Right greater than left pleural effusion.
CHF-EF unknown.
Conditions present prior to admission:
CAD/stent/CABG
CHF
COPD-oxygen dependent 2 L
Hypothyroid
Renal failure
PAF, on chronic Eliquis
Permanent pacemaker
Plan
Respiratory status slowly improving with diuresis and BiPAP.
Supplemental oxygen as needed-on chronic oxygen 2 L
BiPAP as tolerated-on CPAP at home-difficulties tolerating-follows with '[facility]'
Nebulizers if needed-currently not bronchospastic.
Aspiration precautions.
Follow chest [id number] effusion increases in size, consider thoracentesis
No indication for antibiotics.
No indication for steroids
Diuresis as tolerated.
Monitor intake, output, weight, lower extremity edema, renal function.
Cardiology following-correspondence reviewed.
Follow chest x-ray.
Echocardiogram pending.
Atrial fibrillation rate control.
Eliquis increased to 5 mg twice a day
DVT prophylaxis-on Eliquis
Outpatient sleep disorders [id number] follows close to her home in [place]-somewhat CPAP intolerant
Data:
CXR 08/2024: Small to moderate right pleural effusion and small left pleural effusion with adjacent basilar atelectasis.
Cardiomegaly with increased interstitial markings, likely representing interstitial pulmonary edema pattern.
Cardiac Cath 12/2021: 1: Systemic hypertension
2: Severe [place] triple-vessel CAD as described with patent AMBROCIO-LAD, LSC-JVLR-WRB, and SVG-ramus intermedius branch. There is 60-70% proximal stenosis in the left internal mammary artery graft which I believe is best left alone. We could treat
the left main and mid LAD lesions with stenting at some level of increased risk for snowplowing the ostial circumflex and/or first septal paint dipper. At this time she is not experiencing anginal symptoms and tells me that she does not have
significant exertional dyspnea. She is clearly deconditioned. Leg pain has precluded her from exercising although following her RLE stenting this may change. I favor more intensive antihypertensive therapy and following her clinically unless she
has progressive symptoms and if this occurs I would favor stenting of the left main and mid LAD lesions. She has appropriately significant trepidation about taking antiplatelet therapy with recent GI bleeding. She has a need for ongoing Eliquis.
We will add amlodipine 5mg to her regimen. She tells me this previously had her BP normalized and that she was not taken off of it for lack of efficacy or side effects.
3. Angiography of the right distal common carotid artery and right ICA demonstrate no significant lesion that would benefit from revascularization
4. I was able to obtain her preop CABG cath from [facility] [place] (2011)- the distal LMCA was mildly diseased then and the mid LAD had 70% stenosis.
Subjective Data
-
Date of Service:
Date of Service: September 07, 2024
Chief Complaint: Pulmonary Follow Up and Dyspnea Follow Up
Subjective:
Tolerating BiPAP, no complaints shortness of breath, chest congestion, chest pain or abdominal pain
Review of Systems
General: Other (per HPI)
Objective Data
Data Reviewed
Vital Signs / I&O:
Vital Signs
Temp Pulse Resp BP Pulse Ox
98.6 F 70 22 185/67 94
09/07/24 06:37 09/07/24 09:00 09/07/24 09:00 09/07/24 08:06 09/07/24 09:17
Intake and Output
09/06/24 09/07/24 09/08/24
06:59 06:59 06:59
Intake Total 240 / 240
Balance 240 / 240
SaO2: 94
Nasal Cannula flow liters per minute: 2
Physical Exam
General: Respiratory Distress (n) and Comfortable
HEENT: Normocephalic and Anicteric
Cardiovascular: Regular Rhythm
Respiratory: Wheeze (n), Crackles ( few basilar), Rhonchi (n), Non-Labored Respirations, Accessory Resp Muscle Use (n) and Stridor (n)
GI: Soft, Non Distended and Non Tender
Neurology: Awake, Alert and No Motor Deficits
Skin: Warm, Good Color, Cyanosis (n), Jaundice (n) and Rash (n)
Labs/Micro/Reports
Lab Data
09/07/24 03:14
09/07/24 03:14
Laboratory Results
09/06/24
15:21
pH 7.45
pCO2 61 H
pO2 77 L
HCO3 42.4 H*
O2 Delivery Level
Microbiology
09/06/24 09:57 Nasal Swab Influenza Types A & B (JIM) - Final
Negative for Influenza A & B, NAAT
Negative results must be combined with clinical observations
and patient history.
Nucleic Acid Amplification test (NAAT)performed on the
[employer] platform.
--- NOTE | 2024-09-07 10:14 | PTCARENOTE ---
Dr. Wu made aware that patients BP is 177/66. Patient received scheduled oral BP meds 2 hours prior. 1 time dose of PO valsartan ordered and administered to patient. Care ongoing.
--- NOTE | 2024-09-07 12:21 | W.PN.HOSP.TC ---
Today's Communication/Plan
-
cont diuretics
start accuchecks
check TSH
Added Norvasc
NEw entresto noted
Assessment / Plan
Assessment / Plan
83yo F with PMHx of CHF, anxiety, chronci hypoxic hypercapnic respiratory failure in 2L home O2, HTN, DM, hypothyroisim, CAD s/p CABG, Afib, SSS s/p PPM came with worsening SOB for 4 days, managed for CHF exacerbation.
A/P:
#Acute on chronic hypoxic hypercapnic respiratory failure 2/2 Acute CHF (unspecidied) and HAKAN
LAsix, daily weight, electrolytes, follow Cr, I&O
cardiology to follow
Cont nighttime BIPAP
VBG in AM
#Chronic COPD not in exacerbation
cont home bronchodilators
Pulm follows
#DM type 2 with nephropathy
Accuchecks, In sulin SS, DM diet
#CKD stage 3b
outpatient nephrology
#PAroxysmal Afib
#CAD s/p CABG
#SSS s/p PPM
#Essential HTN
#Hypothyroidism
check TSH
cont home meds
cont telemetry
Titrate BP meds to target
DVT ppx on ELiquis
Full code
I have spent at least 58min reviewing chart, test results, communication with consultants and providing direct patient care
Anticipated Discharge: 24 - 48 hours
Subjective/Interval History
-
Date of Service: September 07, 2024
Objective Data
-
Labs:
Laboratory Results
09/07/24
03:14
WBC 6.9
Hgb 14.5
Hct 47.6 H
Plt Count 134
Sodium 144
Potassium 3.6
Chloride 94 L
Carbon Dioxide 39 H
BUN 44 H
Creatinine 1.2 H
Glucose 120 H
Calcium 9.0
Vital Signs:
Vital Signs
Temp Pulse Resp BP Pulse Ox
98.6 F 70 24 173/71 95
09/07/24 06:37 09/07/24 12:00 09/07/24 12:00 09/07/24 12:00 09/07/24 11:00
I&O
09/06/24 09/07/24 09/08/24
06:59 06:59 06:59
Intake Total 240 / 240 480 / 480
Output Total 800 / 800
Balance 240 / 240 -320 / -320
Review of Systems
-
History Source: Patient
All other systems: Reviewed and negative
Physical Exam
-
General: No Apparent Distress
HEENT: Normocephalic
Respiratory: Clear to Auscultation
GI: Soft, Nontender and Nondistended
Genito-urinary: No Costovertebral Tender
Musculoskeletal: No Clubbing, No Cyanosis, Edema, Right Lower Extrem and Edema, Left Lower Extrem
Neuro: Awake, Alert, Oriented and AO x 3
Psych: Calm
[2024-09-07 14:29] LABS: Venous Blood Gas B.E. 16.3 mmol/L (-4 to +4); Venous Blood Gas HCO3 41.8 mmol/L (22-27); Venous Blood Gas O2 Sat % 99.5 %; Venous Blood Gas pCO2 50 mmHg (35-48); Venous Blood Gas pH 7.53 (7.32-7.43); Venous Blood Gas pO2 238 mmHg (30-50)
--- NOTE | 2024-09-07 14:49 | PTCARENOTE ---
Patient transferred via stretcher to IR by patient transport.
[2024-09-07 15:04] LABS: Glycohemoglobin (HgbA1c) 6.3 % (4.0-5.6)
[2024-09-07 15:44] LABS: Body Fluid pH 7.52
--- NOTE | 2024-09-07 16:04 | CM ---
Patient from [facility] with Dx Acute hypoxic hypercapnic respiratory failure 2/2 Acute CHF and HAKAN. O2 2L. BiPAP. Thoracentesis today. Receiving IV Lasix. Per nurses note 09/06; weak gait/transferring. PT Eval pending.
Message to Dr Wu requesting PT Eval.
Plan follow up after seen by PT.
[2024-09-07 16:05] LABS: Body Fluid Amylase 36 U/L; Body Fluid Glucose 157 mg/dl; Body Fluid LDH 65 U/L; Body Fluid Protein 2.6 g/dl; Body Fluid Triglycerides < 30 mg/dl
--- NOTE | 2024-09-07 16:21 | PTCARENOTE ---
Patient arrived back from IR via stretcher. Bandaid on R back C/D/I. Patient wearing 2L NC with SpO2 greater than 92%. Care ongoing.
--- NOTE | 2024-09-07 16:22 | PTCARENOTE ---
Patient AOx3. Patient is anxious at times. 2L NC with SpO2 greater than 92%. Attempted to wean patient to RA, but SpO2 dropped to 87%. [place]. A-V paced with BBB on monitor. BP elevated throughout shift. Dr. Wu aware. +1 B/L LE pitting edema.
Purewick removed. Patient has stress incontinence and frequency of yellow urine. Call chris within reach, bed in lowest position, and bed of wheels locked.
[2024-09-07 16:37] LABS: Body Fluid Mononuclear 92.5 %; Body Fluid Polymorphonuclear 7.5 %; Body Fluid WBC 173 /CUMM
[2024-09-07 16:42] LABS: Body Fluid Second Tech EYM
[2024-09-07 17:01] LABS: Glucose - Point of Care 180 mg/dl (70-99)
[2024-09-07] MEDS: NOVOLOG FLEXPEN-LOW RESISTANCE 1 UNITS SC (17:16)
[2024-09-07] MEDS: ELIQUIS 5 MG PO (20:25)
[2024-09-07] MEDS: ENTRESTO 49 MG/51 MG 1 TAB PO (20:25)
[2024-09-07] MEDS: TYLENOL 650 MG PO (20:28)
[2024-09-07] MEDS: XANAX 0.25 MG PO (20:52)
--- NOTE | 2024-09-07 23:19 | PTCARENOTE ---
Caring for pt overnight. aaox3 but forgetful & confused at times. Remains 2LNC & bipap HS. AV paced. Pt urinating very frequently and having stress incontinent d/t IV lasix. Purewick placed. VSS. Denies pain. No sob noted. Will continue to monitor.
[2024-09-08] VITALS (18 sets, daily range): BP systolic 97–165; BP diastolic 46–112; PULSE 2–79; O2SAT 96; BMI 21.2
[2024-09-08] MEDS: SYNTHROID 50 MCG PO (05:23)
[2024-09-08 05:57] LABS: Venous Blood Gas B.E. 19.9 mmol/L (-4 to +4); Venous Blood Gas HCO3 48.2 mmol/L (22-27); Venous Blood Gas O2 Sat % 95.4 %; Venous Blood Gas O2 Therapy 2L; Venous Blood Gas pH 7.44 (7.32-7.43); Venous Blood Gas pO2 72 mmHg (30-50)
[2024-09-08 06:01] LABS: Venous Blood Gas pCO2 71 mmHg (35-48)
--- NOTE | 2024-09-08 06:03 | PTCARENOTE ---
CO2 71 this morning. Pt wore bipap overnight & still wearing it. Reported to overnight RETAIL SUPPORT SPECIALIST.
[2024-09-08 06:12] LABS: % Basophils 0.6 % (0-2); % Eosinophils 2.4 % (0-6); % Immature Granulocytes 0.5 % (0-0.5); % Lymphocytes 12.8 % (20.5-51.1); % Monocytes 9.4 % (1.7-9.3); % Neutrophils 74.3 % (42.2-75.2); Absolute Eosinophils 0.2 10^3/uL (0-0.7); Absolute Lymphocytes 0.9 10^3/uL (1.2-3.4); Absolute Monocytes 0.6 10^3/uL (0.1-0.6); Absolute Neutrophils 4.9 10^3/uL (1.4-6.5); Hematocrit 41.8 % (37.0-47.0); Mean Corp Hgb Conc. 31.1 g/dL (33.0-37.0); Mean Corpuscular Hgb 29.7 pg (27.0-31.0); Mean Corpuscular Volume 95.7 fL (81.0-99.0); Mean Platelet Volume 11.1 fL (7.4-10.4); Nucleated Red Blood Cells % 0 %; Platelet Count 126 10^3/uL (130-400); Red Blood Cell Count 4.37 10^6/uL (4.20-5.40); Red Cell Dist. Width 15.1 % (11.5-14.5); White Blood Cell Count 6.6 10^3/uL (4.8-10.8)
[2024-09-08 06:24] LABS: ALT (SGPT) 13 U/L (0-35); AST (SGOT) 25 U/L (14-36); Albumin 3.2 g/dl (3.5-5.0); Alkaline Phosphatase 58 U/L (38-126); Blood Urea Nitrogen 41 mg/dl (7-17); Calcium 8.6 mg/dl (8.4-10.2); Chloride 97 mmol/L (98-107); Direct Bilirubin 0.3 mg/dl (0.0-0.4); Estimated Creatinine Clearance 41 ml/min; Glucose 115 mg/dl (70-99); Magnesium 1.9 mg/dl (1.6-2.3); Potassium 3.2 mmol/L (3.5-5.1); Sodium 142 mmol/L (135-145); Total Bilirubin 0.9 mg/dl (0.2-1.3); Total Protein 5.8 g/dl (6.3-8.2); eGFR 55.21
--- NOTE | 2024-09-08 07:56 | W.PN.PUL.V3 ---
Today's Communication / Plan
-
Diuresis as tolerated
Wean oxygen
Increase activity
Begin to liberate from BiPAP
Has CPAP and oxygen 2 L at home
Assessment
-
Patient is a very pleasant 83-year-old female who presents to the emergency room for worsening shortness of breath. Patient reports that over the last couple of weeks she has been progressively getting more short of breath. She denies any cough
however does report dyspnea, orthopnea as well as paroxysmal nocturnal dyspnea. She has had 2 hospitalization in the last few months for heart failure exacerbation at outside facilities most recently in May at [place]. Patient reports that
she has been noticing increasing swelling of bilateral lower extremities over the last few days. In view of worsening symptoms she presented to emergency room and was noted to be floridly volume overloaded. Patient also noted to have bilateral
pleural effusions right slightly larger than the left. Pulmonary consultation was requested for further input.
Acute on top of chronic hypoxemic and hypercapnic respiratory failure.
Right greater than left pleural effusion.
CHF--reduced EF
Conditions present prior to admission:
CAD/stent/CABG
CHF
COPD-oxygen dependent 2 L
Hypothyroid
Renal failure
PAF, on chronic Eliquis
Permanent pacemaker
Plan
Respiratory status continues to improve with diuresis and BiPAP
Supplemental oxygen as needed-on chronic oxygen 2 L-currently room air 88% saturation-
BiPAP as tolerated-on CPAP at home-difficulties tolerating-follows with [facility]'-expressed wishes to be followed routinely
Nebulizers if needed-currently not bronchospastic.
Aspiration precautions.
Follow chest z-xja-hpbtrwg effusion increases in size, consider thoracentesis
No indication for antibiotics.
No indication for steroids
Continue diuresis as tolerated
Continue diuresis as tolerated occasional
Monitor intake, output, weight, lower extremity edema, renal function.
Cardiology following-correspondence reviewed.
Follow chest x-ray.
Echocardiogram 09/07/2024-EF 35-40%, global hypokinesis, mild mitral regurgitation, PA systolic 62
Echocardiogram pending.
Atrial fibrillation rate control.
Eliquis increased to 5 mg twice a day
DVT prophylaxis-on Eliquis
Nutrition
Early mobilization/physical therapy
Reviewed with nursing
Outpatient sleep disorders qsgrxh-zv-uqhjkbxezh follows close to her home in [place]-somewhat CPAP intolerant
Data:
CXR 08/2024: Small to moderate right pleural effusion and small left pleural effusion with adjacent basilar atelectasis.
Cardiomegaly with increased interstitial markings, likely representing interstitial pulmonary edema pattern.
Cardiac Cath 12/2021: 1: Systemic hypertension
2: Severe [place] triple-vessel CAD as described with patent AMBROCIO-LAD, [id number], and SVG-ramus intermedius branch. There is 60-70% proximal stenosis in the left internal mammary artery graft which I believe is best left alone. We could treat
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 At this time she is not experiencing anginal symptoms and tells me that she does not have
significant exertional dyspnea. She is clearly deconditioned. Leg pain has precluded her from exercising although following her RLE stenting this may change. I favor more intensive antihypertensive therapy and following her clinically unless she
has progressive symptoms and if this occurs I would favor stenting of the left main and mid LAD lesions. She has appropriately significant trepidation about taking antiplatelet therapy with recent GI bleeding. She has a need for ongoing Eliquis.
We will add amlodipine 5mg to her regimen. She tells me this previously had her BP normalized and that she was not taken off of it for lack of efficacy or side effects.
3. Angiography of the right distal common carotid artery and right ICA demonstrate no significant lesion that would benefit from revascularization
4. I was able to obtain her preop CABG cath from [facility] (2011)- the distal LMCA was mildly diseased then and the mid LAD had 70% stenosis.
Subjective Data
-
Date of Service:
Date of Service: September 08, 2024
Chief Complaint: Pulmonary Follow Up and Dyspnea Follow Up
Subjective:
Feels better, less short of breath, tolerated BiPAP, room air 88%, no chest pain, abdominal pain
Review of Systems
General: Other (Per HPI)
Objective Data
Data Reviewed
Vital Signs / I&O:
Vital Signs
Temp Pulse Resp BP Pulse Ox
98.2 F 73 20 155/112 97
09/08/24 03:06 09/08/24 06:00 09/08/24 06:00 09/08/24 04:01 09/08/24 06:00
Intake and Output
09/07/24 09/08/24 09/09/24
06:59 06:59 06:59
Intake Total 240 / 240 600 / 600
Output Total 1650 / 1650
Balance 240 / 240 -1050 / -1050
SaO2: 97
Nasal Cannula flow liters per minute: 2
Physical Exam
General: Respiratory Distress (n) and Comfortable
HEENT: Normocephalic and Anicteric
Cardiovascular: Regular Rhythm
Respiratory: Wheeze (n), Crackles ( few basilar), Rhonchi (n), Non-Labored Respirations, Accessory Resp Muscle Use (n) and Stridor (n)
GI: Soft, Non Distended and Non Tender
Neurology: Awake, Alert and No Motor Deficits
Skin: Warm, Good Color, Cyanosis (n), Jaundice (n) and Rash (n)
Labs/Micro/Reports
Lab Data
09/08/24 05:29
09/08/24 05:29
Microbiology
09/07/24 15:26 Pleural Fluid Gram Stain - Preliminary
09/07/24 15:26 Pleural Fluid Fungal Culture - Preliminary
Culture in progress.
Positive cultures are reported as soon as detected.
Final report to follow in four to five weeks.
09/06/24 09:57 Nasal Swab Influenza Types A & B (JIM) - Final
Negative for Influenza A & B, NAAT
Negative results must be combined with clinical observations
and patient history.
Nucleic Acid Amplification test (NAAT)performed on the
[employer] platform.
[2024-09-08] MEDS: ENTRESTO 49 MG/51 MG 1 TAB PO ×2 (08:17→20:29)
[2024-09-08] MEDS: KCL 40 MEQ PO (08:17)
[2024-09-08] MEDS: ELIQUIS 5 MG PO ×2 (08:17→20:29)
[2024-09-08] MEDS: NORVASC 5 MG PO (08:17)
[2024-09-08] MEDS: COREG 25 MG PO ×2 (08:17→20:29)
[2024-09-08] MEDS: KCL 260 MEQ IV (08:18)
[2024-09-08] MEDS: NOVOLOG FLEXPEN-LOW RESISTANCE SC ×2 (08:18→17:28)
[2024-09-08] MEDS: LASIX 40 MG IV ×2 (08:18→20:28)
[2024-09-08 08:19] LABS: Glucose - Point of Care 99 mg/dl (70-99)
[2024-09-08 08:37] LABS: Carbon Dioxide 41 mmol/L (22-30)
--- NOTE | 2024-09-08 11:20 | PTCARENOTE ---
Assumed care of patient at beginning of this shift from previous RN. Patient ordered po potassium and IV potassium; confirmed with Dr Wu that patient is to receive both this morning. IV site burning; VAT RN confirmed site needs to be changed;
await new IV placement. See worklist for full assessment and vital signs.
--- NOTE | 2024-09-08 12:03 | W.PN.HOSP.TC ---
Today's Communication/Plan
-
cont diuresis pending final Cardio recommendations
PT/OT recommended rehab
medially stable for telemetry
Assessment / Plan
Assessment / Plan
83yo F with PMHx of CHF, anxiety, chronic hypoxic hypercapnic respiratory failure in 2L home O2, HTN, DM, hypothyroidism, CAD s/p CABG, Afib, SSS s/p PPM came with worsening SOB for 4 days, managed for CHF exacerbation. ALso had thoracentesis with
transudative fluid on 09/07/24. Pending final cardio reccs and then rehab as per PT/OT
A/P:
#Acute on chronic hypoxic hypercapnic respiratory failure 2/2 Acute CHF (unspecified) and HAKAN
LAsix, daily weight, electrolytes, follow Cr, I&O
cardiology to follow
Cont nighttime BIPAP
VBG persistent compensated hypercarbia
Echo with decreased EF 35% and RH volume overload - to be repeated with contrast
Entresto started
#Chronic COPD not in exacerbation
cont home bronchodilators
Pulm follows
s/p thoracentesis of 1350ml on 09/07/24 with transudate by Lights. Gram stain prelim neg, Cx pending
#DM type 2 with nephropathy
Accuchecks, Insulin SS, DM diet
#CKD stage 3b
outpatient nephrology
#mild thrombocytopenia
follow trend
not on heparin product -Eliquis from home meds
#Paroxysmal Afib
#CAD s/p CABG
#SSS s/p PPM
#Essential HTN
#Hypothyroidism
TSH WNL
cont home meds
cont telemetry
Titrate BP meds to target
DVT ppx on ELiquis
Full code
I have spent at least 58min reviewing chart, test results, communication with consultants and providing direct patient care
Anticipated Discharge: 24 - 48 hours
Subjective/Interval History
-
Date of Service: September 08, 2024
Objective Data
-
Labs:
Laboratory Results
09/08/24
05:29
WBC 6.6
Hgb 13.0
Hct 41.8
Plt Count 126 L
Sodium 142
Potassium 3.2 L
Chloride 97 L
Carbon Dioxide 41 H
BUN 41 H
Creatinine 1.0
Glucose 115 H
Calcium 8.6
Total Bilirubin 0.9
AST 25
ALT 13
Alkaline Phosphatase 58
Vital Signs:
Vital Signs
Temp Pulse Resp BP Pulse Ox
98.1 F 71 26 151/54 96
09/08/24 07:05 09/08/24 10:00 09/08/24 10:00 09/08/24 10:00 09/08/24 10:00
I&O
09/07/24 09/08/24 09/09/24
06:59 06:59 06:59
Intake Total 240 / 240 600 / 600
Output Total 1650 / 1650
Balance 240 / 240 -1050 / -1050
Review of Systems
-
History Source: Patient
All other systems: Reviewed and negative
Physical Exam
-
General: No Apparent Distress
Respiratory: Clear to Auscultation
GI: Soft, Nontender and Nondistended
Musculoskeletal: No Clubbing, No Cyanosis and No Edema
Neuro: Awake, Alert, Oriented and AO x 3
Psych: Calm
[2024-09-08 12:13] LABS: Glucose - Point of Care 160 mg/dl (70-99)
[2024-09-08] MEDS: NOVOLOG FLEXPEN-LOW RESISTANCE 1 UNITS SC (13:02)
--- NOTE | 2024-09-08 13:03 | W.PN.CD ---
Addendum entered and electronically signed by Luis Manuel Patterson MD 09/08/24 14:28:
I saw and examined the patient.
Dr Frank's note was reviewed and I agree with the note.
Comment: IV diuresis GDMT titration as able
Original Note:
Today's Communication / Plan
-
Continue IV lasix 40mg BID.
Monitor BP, likely increase Entresto dose if not controlled
Plan to add SGLT2i on this admission
Impression / Plan
-
83-year-old female with history of CHF (unknown EF), CAD (CABG, PCI), paroxysmal A-fib, PPM, HAKAN, PAD, chronic hypoxic respiratory failure on 2 L NC, hypothyroidism, hypertension, hyperlipidemia, CKD, who presents with acute heart failure
exacerbation.
Currently denies SOB, chest pain or palpitations. Improved symptoms today.
Acute heart failure exacerbation:
Presumed HFmrEF per history
- Continue Lasix 40 mg IV twice daily
- Repeat echo today
- Strict IandO, fluid restrict, follow BMP, daily weights
- Will add Farxiga
Essential hypertension:
- Continue moderate dose Entresto today, likely increase Entresto dose tonight if BP not well controlled
- PRN Hydralazine
Afib:
- ongoing afib, ventricular paced. Normal Ventricular rate
- Increase Eliquis dose to 5mg BID given Age, weight and Cr
Elevated LDL:
LDL 67
Given history of CAD, there is consideration for appropriate secondary prevention of ASCVD with cholesterol goal of <55. However, given patient's age, will hold on statin therapy as potential benefits does not outweigh the risk.
CKD
Baseline Cr 1.3
- Follow BMP
- Cr 1.0 today. Continue IV diuresis
Physical Exam
Vital Signs/Labs
Vital Signs
Temp Pulse Resp BP Pulse Ox
97.7 F 71 26 151/54 96
09/08/24 11:05 09/08/24 10:00 09/08/24 10:00 09/08/24 10:00 09/08/24 10:00
09/07/24 09/08/24 09/09/24
06:59 06:59 06:59
Actual Weight 66.3 kg 63.3 kg
09/08/24 05:29
09/08/24 05:29
Magnesium 1.9 mg/dl (1.6-2.3) 09/08/24 05:29
Triglycerides 150 mg/dl (10-149) H 09/07/24 03:14
LDL Cholesterol, Calc 67 mg/dl 09/07/24 03:14
VLDL Cholesterol, Calc 30 mg/dl (0-30) 09/07/24 03:14
HDL Cholesterol 39 mg/dl 09/07/24 03:14
TSH 2.50 uIU/ml (0.47-4.68) 09/07/24 03:14
09/06/24 09/06/24
09:57 10:21
Shy-W-Cbdlbgjchet Pept Cancelled [id number]
LAB Results
09/06/24 09/06/24 09/06/24
09:57 10:21 20:55
Troponin I Cancelled 0.025 0.032
09/07/24
03:14
Troponin I 0.032
Physical Exam
Constitutional: No acute distress and Comfortable
EENT: Anicteric and Moist mucous membranes
Cardiovascular: JVD pressure is normal, Systolic murmur absent, Diastolic murmur absent, Rhythm/rate is irregular, Pedal edema present (2+ bilaterally, L>R) and Murmur/rub/gallop absent
Respiratory: Respiratory effort normal, Wheeze Absent, Rhonchi Absent and Crackles Present (fine, bibasilar)
GI: Soft, Distention absent, Non tender and Normal bowel sounds
Neuro/Psych: Alert and Oriented
Data Reviewed
-
Date of Service: September 08, 2024
--- NOTE | 2024-09-08 15:15 | CARDSERVLU ---
Echocardiogram with [facility] completed after protocol screening completed. Allergies verified.
Patent IV site: _R AC____
IV site flushed with 0.9% NaCl pre and post administration.
Diluted bolus method utilized to enhance visualization of ventricular reyes.
Total volume given: _4___ mL
Patient tolerated all procedures well without complications.
--- NOTE | 2024-09-08 15:47 | CM ---
Addendum entered by Idania Brown RN 09/08/24 16:52:
Spoke with Derek Ramos [facility]; she can accept the patient when medically ready for d/c. Provided clinical update that patient will have new BiPAP ordered for her home. She will order BiPAP for patient while at SNF - Respiratory BiPAP note
added to [facility].
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
Plan fax BiPAP form to [facility].
Plan [facility] when medically ready.
Original Note:
Patient from [facility] with Dx Acute hypoxic hypercapnic respiratory failure 2/2 Acute CHF and HAKAN. O2 2L. BiPAP HS. Receiving IV Lasix. PT/OT recommend skilled rehab.
Met with patient who agrees to short term SNF for rehab at [facility] - she is aware CM will check and see if they will have an available bed.
Patient is asking if she can be switched from CPAP to BiPAP saying she cannot sleep with her CPAP at home and she slept well here with the BiPAP---> message sent to Dr Owens who responded: If patient is eleigible for BiPAP, I can write script at
time of discharge and then follow up with her locally.
Spoke with Alysa Gibson; [facility] will prepare BiPAP order form. Clinical sent to [facility] including facesheet, H&P, ABGs. She will email order form to CM.
Plan provide BiPAP order form for MD to complete.
Plan follow up with [facility] for acceptance.
[2024-09-08 16:36] LABS: Glucose - Point of Care 113 mg/dl (70-99)
--- NOTE | 2024-09-08 17:16 | PN.CDI ---
CDI
- -
CDI:
Physician Documentation Request
Admit Date: 09/06/24 12:35
Dear Doctor [email or web address],
Patient admitted for acute heart failure.
09/08 Potassium level: 3.2
09/08 Potassium chloride 40 meq PO administered
09/08 Potassium chloride 20 meq IV administered
Based on the above, could you clarify in the progress notes, the appropriate diagnosis, if significant, that supports the above abnormalities and additional evaluation, monitoring and/or treatment rendered:
Hypokalemia
Abnormal lab value insignificant
Other
Use of terms such as suspected, likely, concern for, or probable (associated with a specific diagnosis that is being evaluated, monitored, or treated as if it exists) are acceptable and can be coded in the inpatient setting, when documented at the
time of discharge.
Thank you,
Farrah Stuart RN, BSN
CDI Specialist
Available via [place] text
Please use your independent medical judgment in providing your response.
[2024-09-08] MEDS: FARXIGA 10 MG PO (17:31)
[2024-09-08 21:49] LABS: Glucose - Point of Care 112 mg/dl (70-99)
[2024-09-08] MEDS: TYLENOL 650 MG PO (21:50)
[2024-09-08] MEDS: XANAX 0.25 MG PO (21:50)
--- NOTE | 2024-09-08 22:00 | PTCARENOTE ---
Transferring pt to tele floor. Report given to RN. pt aaox3, remains on 2LNC, AVpaced. +2edema BLE. Crackles half way down L lung & slight crackles R base. NO other changes. VSS.
[2024-09-09] VITALS (8 sets, daily range): BP systolic 99–167; BP diastolic 51–92; PULSE 2; O2SAT 96; BMI 21.2
--- NOTE | 2024-09-09 00:56 | PTCARENOTE ---
Pt transferred to 4W. Pt AAOx3 and oriented to room. No c/o pain upon transfer. Safety measures in place, call chris within reach.
[2024-09-09] MEDS: SYNTHROID 50 MCG PO (05:38)
[2024-09-09] MEDS: LASIX 40 MG IV ×2 (08:17→21:13)
[2024-09-09] MEDS: NORVASC 5 MG PO (08:18)
[2024-09-09] MEDS: FARXIGA 10 MG PO (08:18)
[2024-09-09] MEDS: COREG 25 MG PO (08:18)
[2024-09-09] MEDS: ELIQUIS 5 MG PO ×2 (08:18→21:13)
[2024-09-09] MEDS: ENTRESTO 49 MG/51 MG 1 TAB PO ×2 (08:19→21:12)
[2024-09-09 08:27] LABS: Glucose - Point of Care 121 mg/dl (70-99)
[2024-09-09] MEDS: NOVOLOG FLEXPEN-LOW RESISTANCE SC ×3 (08:31→17:06)
[2024-09-09 08:44] LABS: % Basophils 0.6 % (0-2); % Eosinophils 2.8 % (0-6); % Immature Granulocytes 0.3 % (0-0.5); % Lymphocytes 13.6 % (20.5-51.1); % Monocytes 9.2 % (1.7-9.3); % Neutrophils 73.5 % (42.2-75.2); Absolute Eosinophils 0.2 10^3/uL (0-0.7); Absolute Lymphocytes 0.8 10^3/uL (1.2-3.4); Absolute Monocytes 0.6 10^3/uL (0.1-0.6); Absolute Neutrophils 4.5 10^3/uL (1.4-6.5); Hematocrit 41.8 % (37.0-47.0); Hemoglobin 13.2 g/dL (12.0-16.0); Mean Corp Hgb Conc. 31.6 g/dL (33.0-37.0); Mean Corpuscular Hgb 30.2 pg (27.0-31.0); Mean Corpuscular Volume 95.7 fL (81.0-99.0); Mean Platelet Volume 11.5 fL (7.4-10.4); Nucleated Red Blood Cells % 0 %; Platelet Count 128 10^3/uL (130-400); Red Blood Cell Count 4.37 10^6/uL (4.20-5.40); Red Cell Dist. Width 15.3 % (11.5-14.5); White Blood Cell Count 6.2 10^3/uL (4.8-10.8)
[2024-09-09 09:07] LABS: ALT (SGPT) 15 U/L (0-35); AST (SGOT) 34 U/L (14-36); Albumin 3.5 g/dl (3.5-5.0); Alkaline Phosphatase 65 U/L (38-126); Blood Urea Nitrogen 34 mg/dl (7-17); Calcium 8.8 mg/dl (8.4-10.2); Chloride 95 mmol/L (98-107); Estimated Creatinine Clearance 41 ml/min; Glucose 106 mg/dl (70-99); Magnesium 1.8 mg/dl (1.6-2.3); Potassium 3.5 mmol/L (3.5-5.1); Sodium 140 mmol/L (135-145); Total Bilirubin 1.2 mg/dl (0.2-1.3); Total Protein 6.1 g/dl (6.3-8.2); eGFR 55.21
[2024-09-09 09:16] LABS: Carbon Dioxide 41 mmol/L (22-30)
--- NOTE | 2024-09-09 09:21 | W.PN.PUL.V3 ---
Addendum entered and electronically signed by Rich Owens MD 09/09/24 12:13:
The patient is an 83-year-old female with end-stage COPD with multiple hospitalizations and readmissions with shortness of breath and respiratory failure. The patient has a PCO2 of 63 on 2 L of oxygen and the patient reports she is on continuous
oxygen therapy. The patient reports she gets short of breath with minimal exertion due to her underlying COPD and hypoventilation. Patient is at risk for worsening chronic respiratory failure. I have considered bilevel, bilevel ST and bilevel
VAPS therapy and they have all been ruled out. Due to patient's worsening condition. Patient now requires unique mode of ventilation, not offered on less costly options. The patient requires a device that will not fail n the event of power
failure and is also portable for mobility within the home when needed. Due to the patient's worsening condition, I am prescribing noninvasive ventilation therapy to decrease the chance of continued unplanned expensive medical encounters including
physician office visits, emergency/urgent care treatments and hospital readmissions.
Original Note:
Today's Communication / Plan
-
Diuresis as tolerated
Noninvasive ventilation as tolerated-paperwork signed on chart for DME in anticipation of discharge
Wean oxygen
Increase activity
Assessment
-
Patient is a very pleasant 83-year-old female who presents to the emergency room for worsening shortness of breath. Patient reports that over the last couple of weeks she has been progressively getting more short of breath. She denies any cough
however does report dyspnea, orthopnea as well as paroxysmal nocturnal dyspnea. She has had 2 hospitalization in the last few months for heart failure exacerbation at outside facilities most recently in May at [place]. Patient reports that
she has been noticing increasing swelling of bilateral lower extremities over the last few days. In view of worsening symptoms she presented to emergency room and was noted to be floridly volume overloaded. Patient also noted to have bilateral
pleural effusions right slightly larger than the left. Pulmonary consultation was requested for further input.
Acute on top of chronic hypoxemic and hypercapnic respiratory failure.
Right greater than left pleural effusion.
Thoracentesis right side 09/07/24--1350 mL straw-colored pleural fluid
CHF--reduced EF
Conditions present prior to admission:
CAD/stent/CABG
CHF
COPD-oxygen dependent 2 L
Hypothyroid
Renal failure
PAF, on chronic Eliquis
Permanent pacemaker
Plan
Respiratory status continues to improve with diuresis and BiPAP
Supplemental oxygen as needed-on chronic oxygen 2 L-currently room air 88% saturation-
BiPAP as tolerated-on CPAP at home-difficulties tolerating-follows with [facility]'-expressed wishes to be followed locally
Nebulizers if needed-currently not bronchospastic.
Aspiration precautions.
Follow chest d-fnp-fcfyley effusion increases in size, consider thoracentesis
No indication for antibiotics.
No indication for steroids
Thoracentesis right side 09/07/24--1350 mL straw-colored pleural fluid-transudate, cultures negative, cytology pending
Continue diuresis as tolerated occasional
Monitor intake, output, weight, lower extremity edema, renal function.
Cardiology following-correspondence reviewed.
Follow chest x-ray.
Echocardiogram 09/07/2024-EF 35-40%, global hypokinesis, mild mitral regurgitation, PA systolic 62
Echocardiogram pending.
Atrial fibrillation rate control.
Eliquis increased to 5 mg twice a day
DVT prophylaxis-on Eliquis
Nutrition
Early mobilization/physical therapy
Reviewed with nursing
Outpatient sleep disorders hdcbmg-ep-phlxiajghp follows close to her home in [place]-somewhat CPAP intolerant-tolerating BiPAP better, will try to arrange noninvasive ventilation as an outpatient-paperwork signed 09/09/2024
Data:
CXR 08/2024: Small to moderate right pleural effusion and small left pleural effusion with adjacent basilar atelectasis.
Cardiomegaly with increased interstitial markings, likely representing interstitial pulmonary edema pattern.
Cardiac Cath 12/2021: 1: Systemic hypertension
2: Severe [place] triple-vessel CAD as described with patent AMBROCIO-LAD, [id number], and SVG-ramus intermedius branch. There is 60-70% proximal stenosis in the left internal mammary artery graft which I believe is best left alone. We could treat
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 At this time she is not experiencing anginal symptoms and tells me that she does not have
significant exertional dyspnea. She is clearly deconditioned. Leg pain has precluded her from exercising although following her RLE stenting this may change. I favor more intensive antihypertensive therapy and following her clinically unless she
has progressive symptoms and if this occurs I would favor stenting of the left main and mid LAD lesions. She has appropriately significant trepidation about taking antiplatelet therapy with recent GI bleeding. She has a need for ongoing Eliquis.
We will add amlodipine 5mg to her regimen. She tells me this previously had her BP normalized and that she was not taken off of it for lack of efficacy or side effects.
3. Angiography of the right distal common carotid artery and right ICA demonstrate no significant lesion that would benefit from revascularization
4. I was able to obtain her preop CABG cath from [facility] (2011)- the distal LMCA was mildly diseased then and the mid LAD had 70% stenosis.
Subjective Data
-
Date of Service:
Date of Service: September 09, 2024
Chief Complaint: Pulmonary Follow Up and Dyspnea Follow Up
Subjective:
Did not tolerate BiPAP as well last evening, no increased shortness of breath, chest pain, abdominal pain, overall feels better
Review of Systems
General: Other (Per HPI)
Objective Data
Data Reviewed
Vital Signs / I&O:
Vital Signs
Temp Pulse Resp BP Pulse Ox
97.8 F 71 20 154/64 95
09/09/24 08:03 09/09/24 08:03 09/09/24 08:03 09/09/24 08:03 09/09/24 08:03
Intake and Output
09/08/24 09/09/24 09/10/24
06:59 06:59 06:59
Intake Total 600 / 600 480 / 480
Output Total 1650 / 1650 400 / 400
Balance -1050 / -1050 80 / 80
SaO2: 95
Nasal Cannula flow liters per minute: 2
Physical Exam
General: Respiratory Distress (n) and Comfortable
HEENT: Normocephalic and Anicteric
Cardiovascular: Regular Rhythm
Respiratory: Wheeze (n), Crackles ( few basilar), Rhonchi (n), Non-Labored Respirations, Accessory Resp Muscle Use (n) and Stridor (n)
GI: Soft, Non Distended and Non Tender
Neurology: Awake, Alert and No Motor Deficits
Skin: Warm, Good Color, Cyanosis (n), Jaundice (n) and Rash (n)
Labs/Micro/Reports
Lab Data
09/09/24 06:41
09/09/24 06:41
Microbiology
09/07/24 15:26 Pleural Fluid Body Fluid Culture - Preliminary
No Growth After 18-24 Hours
09/07/24 15:26 Pleural Fluid Gram Stain - Preliminary
09/07/24 15:26 Pleural Fluid Fungal Culture - Preliminary
Culture in progress.
Positive cultures are reported as soon as detected.
Final report to follow in four to five weeks.
09/06/24 09:57 Nasal Swab Influenza Types A & B (JIM) - Final
Negative for Influenza A & B, NAAT
Negative results must be combined with clinical observations
and patient history.
Nucleic Acid Amplification test (NAAT)performed on the
[employer] platform.
--- NOTE | 2024-09-09 11:02 | PN.CDI ---
CDI
- -
CDI:
Physician Documentation Request
Admit Date: 09/06/24 12:35
Dear Doctor Jazmin,
Patient admitted for respiratory failure.
Nursing documentation clinical panel wound care
09/07/24
00:02
Pressure injury appearance (Stage 1) [Present on admission Bilateral Heel] Non blanchable
red
Soft on
palpation (
boggy)
Pressure injury appearance (Stage 1) [Present on admission Sacrum] Non blanchable
red
Pressure injury stage [Present on admission Bilateral Heel] Stage 1
Pressure injury stage [Present on admission Sacrum] Stage 1
Surrounding Skin - [Present on admission Bilateral Heel] Dry and intact
Surrounding Skin - [Present on admission Sacrum] Dry and intact
Physician documentation of the type and location of wounds is required for compliant documentation. Based on the above clinical findings and your assessment, please provide the following in your progress note:
1. Location of the ulcer/wound, including laterality.
2. Type (etiology) of ulcer/wound:
- Diabetic ulcer
- Arterial (ischemic) ulcer
- Traumatic wound
- Venous stasis ulcer
- Pressure (decubitus) ulcer
- Non-healing surgical wound
- Other
- Unable to determine
3. For a non-pressure ulcer, please indicate the depth/severity:
- Limited to the breakdown of skin
- With fat layer exposed
- With necrosis of muscle
- With necrosis of bone
- Other
- Unable to determine
4. If a pressure ulcer, please also include the stage* of the ulcer:
- Stage 1 - Skin intact, non-blanchable redness
- Stage 2 - Partial thickness loss of dermis, includes intact or open blister
- Stage 3 - Full thickness tissue not including bone, tendon or muscle
- Stage 4 - Full thickness tissue loss, including exposed bone, tendon or muscle
- Unstageable - Full thickness loss in which the base of the ulcer is covered by slough (yellow, toscano, pennington, green or brown) and/or eschar (toscano, brown or black) in the wound bed.
- Unable to determine
Use of terms such as suspected, likely, concern for, or probable (associated with a specific diagnosis that is being evaluated, monitored, or treated as if it exists) are acceptable and can be coded in the inpatient setting, when documented at the
time of discharge.
Thank you,
Farrah Stuart RN, BSN
CDI Specialist
Available via [place] text
Please use your independent medical judgment in providing your response.
*Source: National Pressure Ulcer Advisory Panel (NPUAP)
--- NOTE | 2024-09-09 11:04 | W.PN.CD ---
Addendum entered and electronically signed by Luis Manuel Patterson MD 09/09/24 11:20:
I saw and examined the patient.
Dr Frank's note was reviewed and I agree with the note.
Comment:
Increase Entresto
Added [id number]
likely last day of diuresis
Original Note:
Today's Communication / Plan
-
Continue IV diuresis today. Convert to PO tomorrow
Increase entresto
Impression / Plan
-
83-year-old female with history of CHF (unknown EF), CAD (CABG, PCI), paroxysmal A-fib, PPM, HAKAN, PAD, chronic hypoxic respiratory failure on 2 L NC, hypothyroidism, hypertension, hyperlipidemia, CKD, who presents with acute heart failure
exacerbation.
Currently denies SOB, chest pain or palpitations. Improved symptoms today.
Acute HFrEF exacerbation:
- Continue Lasix 40 mg IV twice daily, convert to PO tomorrow
- Strict IandO, fluid restrict, follow BMP, daily weights
- Continue Farxiga. Increase Entresto dose
Essential hypertension:
- Good response to Entresto, increase dose
Afib:
- ventricular paced, rate controlled
- Continue Eliquis
Elevated LDL:
LDL 67
Given history of CAD, there is consideration for appropriate secondary prevention of ASCVD with cholesterol goal of <55. However, given patient's age, will hold on statin therapy as potential benefits does not outweigh the risk.
CKD
Baseline Cr 1.3
- Follow BMP
- Cr 1.0 today. Continue IV diuresis
Physical Exam
Vital Signs/Labs
Vital Signs
Temp Pulse Resp BP Pulse Ox
97.8 F 71 20 154/64 95
09/09/24 08:03 09/09/24 08:03 09/09/24 08:03 09/09/24 08:03 09/09/24 09:21
09/08/24 09/09/24 09/10/24
06:59 06:59 06:59
Actual Weight 63.3 kg 63.106 kg
09/09/24 06:41
09/09/24 06:41
Magnesium 1.8 mg/dl (1.6-2.3) 09/09/24 06:41
Triglycerides 150 mg/dl (10-149) H 09/07/24 03:14
LDL Cholesterol, Calc 67 mg/dl 09/07/24 03:14
VLDL Cholesterol, Calc 30 mg/dl (0-30) 09/07/24 03:14
HDL Cholesterol 39 mg/dl 09/07/24 03:14
TSH 2.50 uIU/ml (0.47-4.68) 09/07/24 03:14
09/06/24 09/06/24
09:57 10:21
Vaq-Q-Etdzwifhqnk Pept Cancelled [id number]
LAB Results
09/06/24 09/07/24
20:55 03:14
Troponin I 0.032 0.032
Physical Exam
Constitutional: No acute distress
EENT: Anicteric and Moist mucous membranes
Cardiovascular: Rhythm & rate is regular, Systolic murmur absent, Diastolic murmur absent, S1S2 is normal, Murmur/rub/gallop absent, Rub absent and Other
Respiratory: Respiratory effort normal, Wheeze Absent, Crackles Absent, Rhonchi Absent and Other (reduced breath sounds on the left base)
GI: Soft, Distention absent, Non tender and Normal bowel sounds
Neuro/Psych: Alert and Oriented
Data Reviewed
-
Date of Service: September 09, 2024
--- NOTE | 2024-09-09 11:45 | W.PN.HOSP.TC ---
Today's Communication/Plan
-
On baseline O2 now
one more day of IV diuresis
CM for rehab in AM
Assessment / Plan
Assessment / Plan
83yo F with PMHx of CHF, anxiety, chronic hypoxic hypercapnic respiratory failure in 2L home O2, HTN, DM, hypothyroidism, CAD s/p CABG, Afib, SSS s/p PPM came with worsening SOB for 4 days, managed for CHF exacerbation. ALso had thoracentesis with
transudative fluid on 09/07/24. Pending final cardio reccs and then rehab as per PT/OT
A/P:
#Acute (resolved) on chronic hypoxic hypercapnic respiratory failure 2/2 Acute CHF (unspecified) and HAKAN
LAsix, daily weight, electrolytes, follow Cr, I&O
cardiology to follow
Cont nighttime BIPAP
VBG persistent compensated hypercarbia
Echo with decreased EF 35% and RH volume overload - to be repeated with contrast
Entresto started and uptitrated as BP allows
#mild hypokalemia
2/2 diuresis
replete and follow
#Chronic COPD not in exacerbation
cont home bronchodilators
Pulm follows
s/p thoracentesis of 1350ml on 09/07/24 with transudate by Lights. Gram stain prelim neg, Cx pending
#DM type 2 with nephropathy
Accuchecks, Insulin SS, DM diet
#CKD stage 3b
outpatient nephrology
#mild thrombocytopenia
follow trend
not on heparin product -Eliquis from home meds
#Paroxysmal Afib
#CAD s/p CABG
#SSS s/p PPM
#Essential HTN
#Hypothyroidism
#PAD s/p b/l LE stent
TSH WNL
cont home meds
cont telemetry
Titrate BP meds to target
LLE swelling - recurrent. Pulse present. US neg for DVT - outpatient f/u with as previously established
#Present on admission Bilateral Heel PI stage 1
#Present on admission Sacrum PI stage 1
wound care
offloading
DVT ppx on Eliquis
Full code
I have spent at least 38min reviewing chart, test results, communication with consultants and providing direct patient care
Anticipated Discharge: Within 24 hours
Subjective/Interval History
-
Date of Service: September 09, 2024
Objective Data
-
Labs:
Laboratory Results
09/09/24
06:41
WBC 6.2
Hgb 13.2
Hct 41.8
Plt Count 128 L
Sodium 140
Potassium 3.5
Chloride 95 L
Carbon Dioxide 41 H
BUN 34 H
Creatinine 1.0
Glucose 106 H
Calcium 8.8
Total Bilirubin 1.2
AST 34
ALT 15
Alkaline Phosphatase 65
Vital Signs:
Vital Signs
Temp Pulse Resp BP Pulse Ox
98.2 F 72 20 151/74 95
09/09/24 11:37 09/09/24 11:37 09/09/24 11:37 09/09/24 11:37 09/09/24 11:37
I&O
09/08/24 09/09/24 09/10/24
06:59 06:59 06:59
Intake Total 600 / 600 480 / 480
Output Total 1650 / 1650 400 / 400
Balance -1050 / -1050 80 / 80
Review of Systems
-
History Source: Patient
All other systems: Reviewed and negative
Physical Exam
-
General: No Apparent Distress
HEENT: Normocephalic
Respiratory: Clear to Auscultation
Cardiac: Regular Rhythm
Musculoskeletal: Edema, Left Lower Extrem
Neuro: Awake, Alert, Oriented and AO x 3
Psych: Calm
[2024-09-09 12:24] LABS: Glucose - Point of Care 144 mg/dl (70-99)
--- NOTE | 2024-09-09 12:31 | CM ---
Addendum entered by Keena Ventura 09/09/24 15:12:
Spoke w/ Rachel, requested BiPaP settings and script to provide to SNF's DME company as patient will need BiPaP while at rehab.
MONALISA faxed Alysa's script and BiPaP settings to [phone]
Original Note:
Chart reviewed. Patient is a independent living resident at [facility]. Needs skilled rehab, [facility] when patient is ready for d/c
Per hospitalist, will be ready for d/c tomorrow
Signed BiPaP order form, secondary insurance, and pulm note faxed to Paige/[facility]. Per Paige, her team will follow patient and set up BiPaP once she returns to independent living.
Left message shiv/ Rachel/admissions at [facility] to update on d/c
Plan: [facility], likely tomorrow
[2024-09-09] MEDS: KCL 40 MEQ PO (13:21)
[2024-09-09] MEDS: TYLENOL 650 MG PO ×2 (14:23→22:40)
[2024-09-09 16:54] LABS: Glucose - Point of Care 149 mg/dl (70-99)
[2024-09-09] MEDS: COREG PO (19:51)
[2024-09-09 21:32] LABS: Glucose - Point of Care 143 mg/dl (70-99)
[2024-09-09] MEDS: XANAX 0.25 MG PO (22:41)
[2024-09-10 02:33] VITALS: PULSE 2
[2024-09-10 02:56] VITALS: BP 120/63
[2024-09-10] MEDS: SYNTHROID 50 MCG PO (05:36)
[2024-09-10 05:42] VITALS: BMI 22.3
[2024-09-10 07:35] VITALS: BP 146/67
[2024-09-10 07:43] LABS: Glucose - Point of Care 103 mg/dl (70-99)
[2024-09-10] MEDS: NOVOLOG FLEXPEN-LOW RESISTANCE SC (07:53)
[2024-09-10] MEDS: LASIX 40 MG IV (07:54)
[2024-09-10] MEDS: ELIQUIS 5 MG PO (07:55)
[2024-09-10] MEDS: NORVASC 5 MG PO (07:55)
[2024-09-10] MEDS: COREG 25 MG PO (07:55)
[2024-09-10] MEDS: ENTRESTO 49 MG/51 MG 1 TAB PO (07:55)
[2024-09-10] MEDS: FARXIGA 10 MG PO (07:55)
[2024-09-10 08:07] LABS: Blood Urea Nitrogen 37 mg/dl (7-17); Chloride 94 mmol/L (98-107); Estimated Creatinine Clearance 35 ml/min; Glucose 101 mg/dl (70-99); Magnesium 1.9 mg/dl (1.6-2.3); Potassium 4.5 mmol/L (3.5-5.1); Sodium 140 mmol/L (135-145); eGFR 44.36
--- NOTE | 2024-09-10 08:07 | W.PN.PUL.V3 ---
Today's Communication / Plan
-
Tolerating BiPAP.
Likely to go to rehabilitation with CPAP.
Diuresis as tolerated.
Assessment
-
Patient is a very pleasant 83-year-old female who presents to the emergency room for worsening shortness of breath. Patient reports that over the last couple of weeks she has been progressively getting more short of breath. She denies any cough
however does report dyspnea, orthopnea as well as paroxysmal nocturnal dyspnea. She has had 2 hospitalization in the last few months for heart failure exacerbation at outside facilities most recently in May at [facility]. Patient reports that
she has been noticing increasing swelling of bilateral lower extremities over the last few days. In view of worsening symptoms she presented to emergency room and was noted to be floridly volume overloaded. Patient also noted to have bilateral
pleural effusions right slightly larger than the left. Pulmonary consultation was requested for further input.
Acute on top of chronic hypoxemic and hypercapnic respiratory failure.
Right greater than left pleural effusion.
Thoracentesis right side 09/07/24--1350 mL straw-colored pleural fluid
CHF--reduced EF
Conditions present prior to admission:
CAD/stent/CABG
CHF
COPD-oxygen dependent 2 L
Hypothyroid
Renal failure
PAF, on chronic Eliquis
Permanent pacemaker
Plan
Respiratory status continues to improve with diuresis and BiPAP
Supplemental oxygen as needed-on chronic oxygen 2 L--Currently. Room air 97%
BiPAP as tolerated-on CPAP at home-difficulties tolerating-follows with [facility]expressed wishes to be followed locally
Nebulizers if needed-currently not bronchospastic.
Aspiration precautions.
Follow chest m-lmq-mjljimf effusion increases in size, consider repeat thoracentesis
No indication for antibiotics
No indication for steroids
Thoracentesis right side 09/07/24--1350 mL straw-colored pleural fluid-transudate, cultures negative, cytology pending
Diuresis as tolerated
Monitor intake, output, weight, lower extremity edema, renal function.
Cardiology following-correspondence reviewed.
Follow chest x-ray.
Echocardiogram 09/07/2024-EF 35-40%, global hypokinesis, mild mitral regurgitation, PA systolic 62
Atrial fibrillation rate control.
Eliquis increased to 5 mg twice a day
DVT prophylaxis-on Eliquis
Nutrition
Early mobilization/physical therapy
Reviewed with nursing
Outpatient sleep disorders [facility] follows close to her home in [place]-somewhat CPAP intolerant-tolerating BiPAP better, will try to arrange noninvasive ventilation as an outpatient-paperwork signed 09/09/2024
Data:
CXR 08/2024: Small to moderate right pleural effusion and small left pleural effusion with adjacent basilar atelectasis.
Cardiomegaly with increased interstitial markings, likely representing interstitial pulmonary edema pattern.
Cardiac Cath 12/2021: 1: Systemic hypertension
2: Severe [place] vie[place] triple-vessel CAD as described with patent AMBROCIO-LAD, QQM-UNXP-HGE, and SVG-ramus intermedius branch. There is 60-70% proximal stenosis in the left internal mammary artery graft which I believe is best left alone. We could treat
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 At this time she is not experiencing anginal symptoms and tells me that she does not have
significant exertional dyspnea. She is clearly deconditioned. Leg pain has precluded her from exercising although following her RLE stenting this may change. I favor more intensive antihypertensive therapy and following her clinically unless she
has progressive symptoms and if this occurs I would favor stenting of the left main and mid LAD lesions. She has appropriately significant trepidation about taking antiplatelet therapy with recent GI bleeding. She has a need for ongoing Eliquis.
We will add amlodipine 5mg to her regimen. She tells me this previously had her BP normalized and that she was not taken off of it for lack of efficacy or side effects.
3. Angiography of the right distal common carotid artery and right ICA demonstrate no significant lesion that would benefit from revascularization
4. I was able to obtain her preop CABG cath from [facility] (2011)- the distal LMCA was mildly diseased then and the mid LAD had 70% stenosis.
Subjective Data
-
Date of Service:
Date of Service: September 10, 2024
Chief Complaint: Pulmonary Follow Up and Dyspnea Follow Up
Subjective:
Tolerated BiPAP last night with some mask leakage, less short of breath, no chest pain, abdominal pain, or increased leg swelling
Review of Systems
General: Other (per HPI)
Objective Data
Data Reviewed
Vital Signs / I&O:
Vital Signs
Temp Pulse Resp BP Pulse Ox
98.0 F 71 18 120/63 96
09/10/24 02:56 09/10/24 02:56 09/10/24 02:56 09/10/24 02:56 09/10/24 02:56
Intake and Output
09/09/24 09/10/24 09/11/24
06:59 06:59 06:59
Intake Total 480 / 480 1080 / 1080
Output Total 400 / 400
Balance 80 / 80 1080 / 1080
SaO2: 96
Nasal Cannula flow liters per minute: 2
Physical Exam
General: Respiratory Distress (n) and Comfortable
HEENT: Normocephalic and Anicteric
Cardiovascular: Regular Rhythm
Respiratory: Wheeze (n), Crackles ( few basilar), Rhonchi (n), Non-Labored Respirations, Accessory Resp Muscle Use (n) and Stridor (n)
GI: Soft, Non Distended and Non Tender
Neurology: Awake, Alert and No Motor Deficits
Skin: Warm, Good Color, Cyanosis (n), Jaundice (n) and Rash (n)
Labs/Micro/Reports
Lab Data
09/09/24 06:41
Microbiology
09/07/24 15:26 Pleural Fluid Fungal Smear - Final
No yeast or fungal elements seen.
09/07/24 15:26 Pleural Fluid Fungal Culture - Preliminary
Culture in progress.
Positive cultures are reported as soon as detected.
Final report to follow in four to five weeks.
09/07/24 15:26 Pleural Fluid Body Fluid Culture - Preliminary
No Growth After 48 Hours
09/07/24 15:26 Pleural Fluid Gram Stain - Preliminary
[2024-09-10 08:19] LABS: Carbon Dioxide 41 mmol/L (22-30)
--- NOTE | 2024-09-10 08:28 | W.PN.CD ---
Today's Communication / Plan
-
High dose Entresto
Farxiga while in hospital; has Jardiance at home
Hold amlodipine
Labs next week
She knows to reach out to home manager quality systems for f/u appt.
We will sign off please call with questions.
Impression / Plan
-
83-year-old female with history of CHF (unknown EF), CAD (CABG, PCI), paroxysmal A-fib, PPM, HAKAN, PAD, chronic hypoxic respiratory failure on 2 L NC, hypothyroidism, hypertension, hyperlipidemia, CKD, who presents with acute heart failure
exacerbation.
Subjective: feels improved Currently denies SOB, chest pain or palpitations. Improved symptoms today.
Acute HFrEF exacerbation:
- Torsemide 40 mg dialy PO; stop IV diuretics
- Strict IandO, fluid restrict, follow BMP, daily weights
- Continue Farxiga. Entresto now high dose
- will need labs next week
Essential hypertension:
- Improved --> hold amlodipine for now
Afib:
- ventricular paced, rate controlled
- Continue Eliquis
Elevated LDL:
LDL 67
Given history of CAD, there is consideration for appropriate secondary prevention of ASCVD with cholesterol goal of <55. However, given patient's age, will hold on statin therapy as potential benefits does not outweigh the risk.
CKD
Baseline Cr 1.3
- Follow BMP
- Cr 1.0 today. Continue IV diuresis
Physical Exam
Vital Signs/Labs
Vital Signs
Temp Pulse Resp BP Pulse Ox
97.5 F 71 18 146/67 96
09/10/24 07:35 09/10/24 07:35 09/10/24 07:35 09/10/24 07:35 09/10/24 08:07
09/09/24 09/10/24 09/11/24
06:59 06:59 06:59
Actual Weight 139 lb 2 oz 146 lb 5 oz
09/09/24 06:41
09/10/24 07:13
Magnesium 1.9 mg/dl (1.6-2.3) 09/10/24 07:13
Triglycerides 150 mg/dl (10-149) H 09/07/24 03:14
LDL Cholesterol, Calc 67 mg/dl 09/07/24 03:14
VLDL Cholesterol, Calc 30 mg/dl (0-30) 09/07/24 03:14
HDL Cholesterol 39 mg/dl 09/07/24 03:14
TSH 2.50 uIU/ml (0.47-4.68) 09/07/24 03:14
09/06/24 09/06/24
09:57 10:21
Qjh-F-Qpltngnvtey Pept Cancelled [id number]
Physical Exam
Constitutional: No acute distress and Comfortable
EENT: Anicteric
Cardiovascular: Rhythm & rate is regular and Other
Respiratory: Other (diminished b/l )
GI: Soft
Neuro/Psych: AO x 3
Data Reviewed
-
Date of Service: September 10, 2024
EKG: Tracing Personally Visualized and interpreted (paced)
Echo: Tracing Personally Visualized and interpreted
Labs: Labs Reviewed by me
[2024-09-10 10:33] VITALS: BP 116/67; PULSE 72; O2SAT 95
[2024-09-10 11:19] VITALS: BP 114/42
[2024-09-10 11:36] LABS: Glucose - Point of Care 180 mg/dl (70-99)
--- NOTE | 2024-09-10 11:45 | W.PN.HOSP.TC ---
Today's Communication/Plan
-
dc
Assessment / Plan
Assessment / Plan
83yo F with PMHx of CHF, anxiety, chronic hypoxic hypercapnic respiratory failure in 2L home O2, HTN, DM, hypothyroidism, CAD s/p CABG, Afib, SSS s/p PPM came with worsening SOB for 4 days, managed for CHF exacerbation. ALso had thoracentesis with
transudative fluid on 09/07/24. Much improved on diuresis, started on high dose entrtesto. To follow up with cardiology and PCP for labs in 1 week. Medically stable for d/c home as per PT/OT. CM will start process for BiPAP at home, meanwhile cont
existent CPAP
A/P:
#Acute (resolved) on chronic hypoxic hypercapnic respiratory failure 2/2 Acute CHF (unspecified) and HAKAN
LAsix, daily weight, electrolytes, follow Cr, I&O
cardiology to follow
Cont nighttime BIPAP
VBG persistent compensated hypercarbia
Echo with decreased EF 35% and RH volume overload - to be repeated with contrast
Entresto started and uptitrated as BP allows
#mild hypokalemia
2/2 diuresis
replete and follow
#Chronic COPD not in exacerbation
cont home bronchodilators
Pulm follows
s/p thoracentesis of 1350ml on 09/07/24 with transudate by Lights. Gram stain prelim neg, Cx pending
#DM type 2 with nephropathy
Accuchecks, Insulin SS, DM diet
#CKD stage 3b
outpatient nephrology
#mild thrombocytopenia
follow trend
not on heparin product -Eliquis from home meds
#Paroxysmal Afib
#CAD s/p CABG
#SSS s/p PPM
#Essential HTN
#Hypothyroidism
#PAD s/p b/l LE stent
TSH WNL
cont home meds
cont telemetry
Titrate BP meds to target
LLE swelling - recurrent. Pulse present. US neg for DVT - outpatient f/u with as previously established
#Present on admission Bilateral Heel PI stage 1
#Present on admission Sacrum PI stage 1
wound care
offloading
DVT ppx on Eliquis
Full code
I have spent at least 38min reviewing chart, test results, communication with consultants and providing direct patient care
Anticipated Discharge: Today
Subjective/Interval History
-
Date of Service: September 10, 2024
Objective Data
-
Labs:
Laboratory Results
09/10/24
07:13
Sodium 140
Potassium 4.5 D
Chloride 94 L
Carbon Dioxide 41 H
BUN 37 H
Creatinine 1.2 H
Glucose 101 H
Calcium 9.0
Vital Signs:
Vital Signs
Temp Pulse Resp BP Pulse Ox
97.7 F 71 18 114/42 96
09/10/24 11:19 09/10/24 11:19 09/10/24 11:19 09/10/24 11:19 09/10/24 11:19
I&O
09/09/24 09/10/24 09/11/24
06:59 06:59 06:59
Intake Total 480 / 480 1080 / 1080
Output Total 400 / 400
Balance 80 / 80 1080 / 1080
Review of Systems
-
All other systems: Reviewed and negative
Constitutional: Reports No Symptoms
Physical Exam
-
General: No Apparent Distress
HEENT: Normocephalic
Respiratory: Clear to Auscultation
GI: Soft, Nontender and Nondistended
Neuro: Awake, Alert, Oriented and AO x 3
Psych: Calm
--- NOTE | 2024-09-10 11:52 | W.DCSUMMARY ---
Discharge Summary
Discharge Data
Date of Admission: 09/06/24
Date of Discharge: 09/10/24
-
Pending Results: No
Hospital Course
83yo F with PMHx of CHF, anxiety, chronic hypoxic hypercapnic respiratory failure in 2L home O2, HTN, DM, hypothyroidism, CAD s/p CABG, Afib, SSS s/p PPM came with worsening SOB for 4 days, managed for CHF exacerbation. ALso had thoracentesis with
transudative fluid on 09/07/24. Much improved on diuresis, started on high dose entrtesto. To follow up with cardiology and PCP for labs in 1 week. Medically stable for d/c home as per PT/OT. CM will start process for BiPAP at home, meanwhile cont
existent CPAP
I have spent at least 38min reviewing chart, test results, communication with consultants and providing direct patient care
Patient was managed for:
#Acute (resolved) on chronic hypoxic hypercapnic respiratory failure 2/2 Acute CHF (unspecified) and HAKAN
#mild hypokalemia
#Chronic COPD not in exacerbation
#DM type 2 with nephropathy
#CKD stage 3b
#mild thrombocytopenia
#Paroxysmal Afib
#CAD s/p CABG
#SSS s/p PPM
#Essential HTN
#Hypothyroidism
#PAD s/p b/l LE stent
#Present on admission Bilateral Heel PI stage 1
#Present on admission Sacrum PI stage 1
Discharge Plan
-
Patient Disposition: Home with Home Care
Discharge Diagnosis/Procedures: CHF
Diet: No added salt
Blood Work: BMP in 1 week with PCP
Specialty Instructions: Weigh Daily- Call MD for wt gain/loss 3 lbs overnight/5 lbs in 1 week
Instructions: *[facility] Heart Failure Instructions
Referrals:
Luis Manuel Patterson MD [Active] - in less than 1 week
Rich Owens MD [Active] - in three to four weeks (Has CPAP and oxygen 2 L at home-was hypercapnic and discharged on NIV- [employer])
Guera Carter DO [Family Provider] -
Prescriptions:
New
torsemide 20 mg Tablet
40 mg PO DAILY Qty: 30 0RF
Eliquis 5 mg Tablet
5 mg PO BID Qty: 60 0RF
Entresto 97-103 mg Tablet
1 tab PO BID Qty: 60 0RF
Jardiance 10 mg tablet
10 mg PO DAILY Qty: 30 0RF
Continued
levothyroxine 50 mcg Tablet
50 mcg PO DAILY
carvedilol [Coreg] 25 mg Tablet
25 mg PO BID
Tradjenta 5 mg Tablet
5 mg PO DAILY
multivitamin Tablet
1 tab PO DAILY
alpha lipoic acid 50 mg Capsule
50 mg PO DAILY
magnesium 200 mg Tablet
200 mg PO DAILY
Macu Guard
1 tab PO DAILY
alprazolam 0.25 mg Tablet
0.25 mg PO HS PRN (Reason: sleep)
valsartan 40 mg Tablet
40 mg PO DAILY
Discontinued
torsemide 20 mg Tablet
20 mg PO DAILY
Eliquis 2.5 mg Tablet
2.5 mg PO BID
Discharge Orders:
Discharge Patient (As Directed); Ordered 09/10/24
Ordered By: Yang Wu
Discharge Date and Time
Print Language: WELSH
[2024-09-10] MEDS: NOVOLOG FLEXPEN-LOW RESISTANCE 1 UNITS SC (12:24)
--- NOTE | 2024-09-10 12:36 | CM ---
Addendum entered by Keena Ventura 09/10/24 15:23:
Coordinated w/ [facility] and Nina[facility]. Faxed requesting clinicals and script to [facility].
Original Note:
Discussed w/ hospitalist and patient. Patient no longer feels like she needs rehab, improved w/ therapy today who is recommending home PT now.
Patient agreeable to use [facility] for [facility]. Referral faxed to [phone]
Spoke w/ Rachel[facility], updated her regarding patient's plan to d/c home instead of rehab. Rachel shared the BiPaP ordered can just be delivered directly to patient's home.
IMM verbally reviewed, copy given to patient, copy on chart
Spouse will transport
Plan: Home w/ [facility]. [facility] to continue to arrange for BiPaP
[2024-09-10 14:40] VITALS: BP 138/55
--- NOTE | 2024-09-11 11:22 | W.HF.CON ---
Heart Failure
- LV Function
Left ventricular function study result: LV Ejection fraction </= 35%
Ejection Fraction Percentage: 30-35
- ARNI
Patient already on ARNI: Yes
- ACEI/ARB
Patient already on ACEI/ARB: No
Heart Failure ACEI/ARB Not Indicated: Patient ordered/on ARNI
- Beta Vicki
Patient already on Evidence Based Beta Vicki: Yes
- Mineralocorticord Receptor Antagonist
Patient already on MRA: No
Heart Failure MRA Contraindication: Hypotension
- SGLT-2 Inhibitor
Patient already on SGLT-2 Inhibitor: Yes
- Afib Anticoagulation
Patient already on Anticoagulation for Afib: Yes
- NYHA CHF Classification
NYHA CHF Classification Level: Class III - Symptoms w/ min exertion, interferes w/ nml daily activity
- ACC/AHA Stage
ACC/AHA Stage: Stage C: Symptomatic Heart Failure
== END 2024-09-10 15:41 | disposition home health service (06) | DRG 291 ==
LOC: 4 WEST ACU 12:35
PROVIDERS: Physician Assistant; Radiology Diagnostic Radiology; Registered Nurse; ADMITTING PHYSICIAN Internal Medicine; ATTENDING PHYSICIAN Internal Medicine; EMERGENCY PHYSICIAN Emergency Medicine; FAMILY PHYSICIAN Family Medicine; OTHER PHYSICIAN Internal Medicine; OTHER PHYSICIAN Internal Medicine Cardiovascular Disease
PROC: 0W993ZZ Drainage of Right Pleural Cavity, Percutaneous Approach (ICD-10-PCS; 2024-09-07)
DX: I13.0 Hypertensive heart and chronic kidney disease with heart failure and stage 1 through stage 4 chronic kidney disease, or unspecified chronic kidney disease (principal); J96.21 Acute and chronic respiratory failure with hypoxia; I50.20 Unspecified systolic (congestive) heart failure; Z11.52 Encounter for screening for COVID-19; Z87.891 Personal history of nicotine dependence; I48.0 Paroxysmal atrial fibrillation; E87.6 Hypokalemia; N18.32 Chronic kidney disease, stage 3b; E11.22 Type 2 diabetes mellitus with diabetic chronic kidney disease; E11.51 Type 2 diabetes mellitus with diabetic peripheral angiopathy without gangrene; D69.6 Thrombocytopenia, unspecified; E03.9 Hypothyroidism, unspecified; Z79.899 Other long term (current) drug therapy
CPT/HCPCS: 88305; 93308; 32555; 36600; 71045; 71046; 80048; 80053; 80061; 82150; 82248; 82805; 82945; 82962; 83036; 83615; 83735; 83880; 83986; 84157; 84443; 84478; 84484; 85025; 87015; 87070; 87102; 87116; 87205; 87206; 87502; 87811; 88112; 89051; 93005; 93306; 93971; 94660; 96374; 97116; 97163; 97167; 97530; 97535; 99285; Q9950

== ENCOUNTER 2024-12-21 12:07 | Emergency (ER) | payer MEDICARE, OTHER, SELFPAY ==
[2024-12-21 12:22] VITALS: BP 134/57
[2024-12-21] MEDS: TYLENOL 650 MG PO (15:59)
[2024-12-21] MEDS: ULTRAM 50 MG PO (16:00)
--- NOTE | 2024-12-21 16:14 | ED.GENMED ---
History of Present Illness
General
Chief Complaint: Fall
Source: patient and spouse ( states that the bruising is taking a long time to heal)
Time Seen by Provider: 12/21/24 15:16
History of Present Illness
History of Present Illness:
Note:
CHIEF COMPLAINT(S)
Persisting hip pain after a fall.
HISTORY OF PRESENT ILLNESS
The patient is an 84-year-old female with a history of atrial fibrillation on anticoagulation therapy, who presents with persistent hip pain following a fall approximately ten days ago. The incident occurred while she was attempting to pick
something up from a seated position on a toilet, resulting in a fall to the ground. Initial evaluation at an outside hospital involved X-rays of the knee, hip, and abdomen, which revealed no fractures. Despite this, the patient reports ongoing hip
pain, which escalates with ambulation. She describes the pain as severe enough to significantly impact her daily activities, such as walking from the bathroom to the kitchen at home. The pain persists despite her ability to bear weight and walk
short distances. The patient expresses that she 'cant take it anymore,' warranting further evaluation. Patient was given tramadol which she tried today with a dose of Tylenol which did improve her symptoms
PAST MEDICAL AND SURGICAL HISTORY
- Atrial fibrillation
MEDICATIONS
- Apixaban 3.5 mg
PHYSICAL EXAM
- General: Alert, no acute distress.
- Skin: Warm, dry.
- Head: Normocephalic, atraumatic.
- Neck: Supple, trachea midline.
- Eye, Ears, Nose, Mouth, and Throat: Oral mucosa moist.
- Cardiovascular: Normal peripheral perfusion, No edema.
- Respiratory: Respirations are non-labored.
- Gastrointestinal: Abdomen nondistended
- Back: Normal range of motion, Normal alignment.
- Musculoskeletal: Normal ROM, normal strength.
- Neurological: Alert and oriented to person, place, time, and situation, No focal neurological deficit observed.
- Psychiatric: Cooperative, appropriate mood & affect.
PLAN
- Further evaluation of hip pain due to persistent symptoms post-fall.
- Review potential impact of anticoagulation with Apixaban on symptomatology and management.
DIFFERENTIAL DIAGNOSIS
The differential diagnosis includes, in no particular order and is not limited to:
- Hip contusion
- Musculoskeletal sprain or strain
- Osteoarthritis exacerbation
- Trochanteric bursitis
- Iliopsoas strain
- Sacroiliac joint dysfunction
- Femoral neck fracture (occult)
- Labral tear
- Gluteal tendinopathy
- Soft tissue hematoma
CARE-UPDATE
12/21/24 - 16:12
Reviewed pelvic x-ray results; confirmed no acute fractures. Continue with current management plan.
Disposition:
SUMMARY OF ENCOUNTER
The patient is an 84-year-old female who sustained a fall approximately ten days ago and was initially evaluated at an outside hospital. During the visit, she was found to have a healing hematoma on her greater trochanter. The patient is on apixaban
therapy for atrial fibrillation. She presented with persistent hip pain but had no signs of intrapelvic or intra-abdominal pathology upon examination. The pain is suspected to be associated with the hematoma. The patient appeared well and ambulated
with mild assistance in the emergency department.
PLAN
Arrangements were made for case management to ensure she receives a visiting nurse and physical therapy at her living facility. It was advised to continue the use of tramadol for pain management and to take warm baths to expedite the absorption of
the hematoma.
INDEPENDENT REVIEW OF LABS AND INTERPRETATION OF TESTS
My independent review of the X-rays confirmed the absence of acute fractures.
PATIENT EDUCATION AND COUNSELING
The patient was advised on the use of tramadol for pain management and the potential benefits of warm baths to aid in the quicker absorption of the hematoma.
FOLLOW-UP INSTRUCTIONS
The patient is to have a visiting nurse and physical therapy arranged at her living facility to assist with recovery. Case discussed with case management
MEDICATION RECONCILIATION
Tramadol was recommended for management of pain over the next few days.
MEDICAL DECISION MAKING
Chronic conditions affecting care: Atrial fibrillation.
DDx: Hip contusion, Musculoskeletal sprain or strain, Osteoarthritis exacerbation, Trochanteric bursitis, Iliopsoas strain, Sacroiliac joint dysfunction, Femoral neck fracture (occult), Labral tear, Gluteal tendinopathy, Soft tissue hematoma.
-Data:
Category 1
My independent interpretation of the X-ray confirmed the absence of acute fractures.
Category 3
Case management has been arranged to coordinate visiting nursing services and physical therapy for the patient.
DIAGNOSIS
Soft tissue hematoma (ICD-10: M79.81).
Pain in right hip (ICD-10: M25.551).
Phy Exam
Physical Exam
Physical Exam:
.
Course
Orders/Labs/Results
Orders:
Orders
12/21/24 15:39
Pelvis, Complete 3 Views CR [CR Pelvis Comp Min 3 Views] Urgent
Comment:
Reason For Exam: left hip/pelvic pain
12/21/24 15:46
Case Management Consult ONCE
Case Management Consult: Discharge Planning
Acetaminophen [Tylenol] 650 mg PO NOW STA
Tramadol HCl [Ultram] 50 mg PO NOW STA
Vital Signs
Initial and Last Documented VS:
Initial Vital Signs
Temp Pulse Resp BP Pulse Ox
98.2 F 70 18 134/57 92
12/21/24 12:22 12/21/24 12:22 12/21/24 12:22 12/21/24 12:22 12/21/24 12:22
Last Documented Vital Signs
Temp Pulse Resp BP Pulse Ox
97.7 F 66 18 158/68 94
12/21/24 17:00 12/21/24 17:00 12/21/24 17:00 12/21/24 17:00 12/21/24 17:00
*Pulse Oximetry
SaO2: 92
Oxygen Mode of Delivery: Room air
Patient hypoxic: no
*Critical Care Note
Total Time (30-74mins, 75-104mins- exclusive of procedures): Not Applicable
ED Attending Note
-
Portions of this chart may have been created with voice recognition software.� Occasional wrong word or��sound alike� substitutions may have occurred due to the inherent limitations of voice recognition software.
Discharge Plan
Departure
Patient Disposition: Home (Routine Discharge)
Date of Disposition: 12/21/24
Time of Disposition: 16:18
Patient with high blood pressure during this ER visit?: No
Discharge Problem:
Hematoma, Contusion
Instructions: Contusion (DC), Hematoma
Prescriptions:
No Action
levothyroxine 50 mcg Tablet
50 mcg PO DAILY
carvedilol [Coreg] 25 mg Tablet
25 mg PO BID
Tradjenta 5 mg Tablet
5 mg PO DAILY
multivitamin Tablet
1 tab PO DAILY
alpha lipoic acid 50 mg Capsule
50 mg PO DAILY
magnesium 200 mg Tablet
200 mg PO DAILY
Macu Guard
1 tab PO DAILY
alprazolam 0.25 mg Tablet
0.25 mg PO HS PRN (Reason: sleep)
torsemide 20 mg Tablet
40 mg PO DAILY Qty: 30 0RF
Eliquis 5 mg Tablet
5 mg PO BID Qty: 60 0RF
Entresto 97-103 mg Tablet
1 tab PO BID Qty: 60 0RF
Jardiance 10 mg tablet
10 mg PO DAILY Qty: 30 0RF
Referrals:
Guera Carter DO [Family Provider, Family Practice]
Activity Restrictions/Additional Instructions:
Please apply warm compresses to your hematoma and see physical therapy for follow-up. Return immediately for weakness of any kind, worsening symptoms or any concerns. Continue Tylenol and tramadol for pain control. Please see your doctor in the
next 1 week for follow-up and reevaluation
Interventions
Interventions:
*Risk Screen - Suicide Last Done: 12/21/24 12:22
*General Assessment Last Done: 12/21/24 17:30
*Neglect/Abuse Screening Last Done: 12/21/24 12:22
*ED- Fall Risk Assessment Last Done: 12/21/24 16:08
*ED COVID-19 Vaccine History Last Done: 12/21/24 16:08
*Nursing Disposition Last Done: 12/21/24 17:30
ED-Skin Assessment Last Done: 12/21/24 15:38
ED- Neurological Assessment Last Done: 12/21/24 15:38
ED-Musculoskeletal Assessment Last Done: 12/21/24 17:15
Discharge Date and Time
Discharge Date/Time: 12/21/24 17:30
Print Language: CHINESE
[2024-12-21 17:00] VITALS: BP 158/68
--- NOTE | 2024-12-21 17:03 | CM ---
Met with patient and in the ED; Case Management Consult Completed
Pharmacy verified: [facility] @ [address]
Patient and live in an apartment; [facility], [place]
PLOF: patient reported she was independent; ambulated with rolling walker
Patient is agreeable to home health VN/PT; [facility] agency preference is [facility]
CM spoke via phone with [facility] Transition Coach On-[facility] @ #[phone]. As instructed, clinicals faxed to Intake office @ # [phone]
Home Health referral also sent via [facility]
will transport home
Plan: Discharge to home with home health VN/PT
== END 2024-12-21 17:30 | disposition home or self-care (01) ==
LOC: EMR 12:07
PROVIDERS: EMERGENCY PHYSICIAN Emergency Medicine; FAMILY PHYSICIAN Family Medicine
DX: S70.01XA Contusion of right hip, initial encounter (principal); W19.XXXA Unspecified fall, initial encounter; I48.91 Unspecified atrial fibrillation; Z79.01 Long term (current) use of anticoagulants
CPT/HCPCS: 99283; 72190

== ENCOUNTER → 2025-03-16 12:25 | Outpatient (REF) | payer MEDICARE, OTHER, SELFPAY | LOC: RAD 12:25 | PROVIDERS: ATTENDING PHYSICIAN Internal Medicine; FAMILY PHYSICIAN Family Medicine | DX: R91.8 Other nonspecific abnormal finding of lung field (principal) | CPT/HCPCS: 71250 ==